=== PATIENT | male | born 1965 | race Caucasian/White ===

== ENCOUNTER 2018-12-01 13:20 | Emergency (ER) | payer SELFPAY ==
[2018-12-01] MEDS ORDERED: NORMAL SALINE 1000 ML 1,000 ML IV ONE (13:45)
[2018-12-01] MEDS ORDERED: ASPIRIN 325 MG TABLET PO ONE (13:45)
--- NOTE | 2018-12-01 13:47 | ER Document Report ---
ED Medical Screen (RME) - General Chief Complaint: Chest Pain Stated Complaint: DIFFICULTY SWALLOWING/COUGH/CHEST PRESSURE Time Seen by Provider: 12/01/18 13:44 Mode of Arrival: Wheelchair Information source: Patient, Relative TRAVEL OUTSIDE OF THE [place] IN LAST 30 DAYS: No - HPI Patient complains to provider of: CP; cough; anorexia Onset: Other - Pt seen in UC earlier today for c/o cough, CP, decreased po intake for the past few days. Has not taken ASA today - Related Data Allergies/Adverse Reactions: No Known Allergies Allergy (Verified 12/01/18 13:21) Past Medical History - Social History Chew tobacco use (# tins/day): No Frequency of alcohol use: None Drug Abuse: None Renal/ Medical History: Denies: Hx Peritoneal Dialysis Physical Exam - Vital signs Vitals: Temp Pulse Resp BP Pulse Ox 98.2 F 107 H 14 142/71 H 94 12/01/18 13:36 12/01/18 13:36 12/01/18 13:36 12/01/18 13:36 12/01/18 13:36 Course - Vital Signs Vital signs: Temp Pulse Resp BP Pulse Ox 98.2 F 107 H 14 142/71 H 94 12/01/18 13:36 12/01/18 13:36 12/01/18 13:36 12/01/18 13:36 12/01/18 13:36
[2018-12-01 14:21] LABS: ABSOLUTE LYMPHOCYTES (AUTO) 0.9 10^3/uL (0.5-4.7); ABSOLUTE MONOCYTES (AUTO) 0.7 10^3/uL (0.1-1.4); ABSOLUTE NEUT (AUTO) 5.4 10^3/uL (1.7-8.2); BASOPHILS % (AUTO) 0.3 % (0-2); EOSINOPHILS % (AUTO) 0.1 % (0-6); HEMATOCRIT 46.3 % (37.9-51.0); HEMOGLOBIN 16.2 g/dL (13.5-17.0); LYMPHOCYTES % (AUTO) 12.8 % (13-45); MEAN CORPUSCULAR HEMOGLOBIN 33.6 pg (27.0-33.4); MEAN CORPUSCULAR VOLUME 96 fl (80-97); PLATELET COUNT 138 10^3/uL (150-450); RED BLOOD COUNT 4.83 10^6/uL (4.35-5.55); RED CELL DISTRIBUTION WIDTH 12.7 % (11.5-14.0); SEGMENTED NEUTROPHILS % (AUTO) 76.8 % (42-78); TOTAL CELLS COUNTED % (AUTO) 100 %
[2018-12-01 14:32] LABS: ALANINE AMINOTRANSFERASE 24 U/L (21-72); ALBUMIN 4.2 g/dL (3.5-5.0); ALKALINE PHOSPHATASE 137 U/L (38-126); ANION GAP 10 (5-19); ASPARTATE AMINO TRANSFERASE 34 U/L (17-59); BILIRUBIN,DIRECT 0.2 mg/dL (0.0-0.4); BILIRUBIN,TOTAL 0.4 mg/dL (0.2-1.3); BLOOD UREA NITROGEN 16 mg/dL (7-20); CALCIUM 9.3 mg/dL (8.4-10.2); CARBON DIOXIDE 31 mmol/L (22-30); CHLORIDE 96 mmol/L (98-107); CREATINE KINASE 118 U/L (55-170); GLUCOSE 115 mg/dL (75-110); POTASSIUM 4.5 mmol/L (3.6-5.0); SODIUM 137.3 mmol/L (137-145); TOTAL PROTEIN 7.3 g/dL (6.3-8.2)
--- NOTE | 2018-12-01 14:37 | RADIOLOGY REPORT (SQ) ---
EXAM DESCRIPTION: CHEST 2 VIEWS COMPLETED DATE/TIME: 12/01/2018 2:11 pm REASON FOR STUDY: cough COMPARISON: None. NUMBER OF VIEWS: Two view. TECHNIQUE: Frontal and lateral radiographic views of the chest acquired. LIMITATIONS: None. FINDINGS: LUNGS AND PLEURA: No opacities, masses or pneumothorax. No pleural effusion. Attenuated bl ood vessels and flattened jose-diaphragms. MEDIASTINUM AND HILAR STRUCTURES: No masses. No contour abnormalities. HEART AND VASCULAR STRUCTURES: Heart normal in size and contour. No evidence for failure. BONES: No acute findings. HARDWARE: None in the chest. OTHER: No other significant finding. IMPRESSION: COPD. NO ACUTE RADIOGRAPHIC FINDING IN THE CHEST. TECHNICAL DOCUMENTATION: JOB ID: [id number] [employer]- All Rights Reserved Reading location - IP/workstation name: [email or web address]
[2018-12-01 14:43] LABS: CREATINE KINASE MB 0.78 ng/mL (<4.55)
[2018-12-01 14:44] LABS: TROPONIN I < 0.012 ng/mL
[2018-12-01] MEDS ORDERED: FAMOTIDINE INJ/PF 20 MG/2 ML SDV IV ONE (15:00)
[2018-12-01] MEDS ORDERED: ONDANSETRON HCL INJ/PF 4 MG/2 ML SDV IV ONE (15:00)
[2018-12-01] MEDS ORDERED: KETOROLAC TROMETHAMINE INJ/PF 30 MG/1 ML SDV IV ONE (15:00)
[2018-12-01] MEDS ORDERED: MAG HYDROX/AL HYDROX/SIMETH SUSP 30 ML UDCUP PO ONE (15:03)
[2018-12-01] MEDS ORDERED: METOCLOPRAMIDE HCL ORAL SOLN 10 MG/10 ML UDCUP PO ONE (15:03)
[2018-12-01] MEDS ORDERED: LIDOCAINE 2% VISCOUS SOLN 20 ML UDCUP PO ONE (15:03)
--- NOTE | 2018-12-01 15:06 | ER Document Report ---
ED General - General Chief Complaint: Chest Pain Stated Complaint: DIFFICULTY SWALLOWING/COUGH/CHEST PRESSURE Time Seen by Provider: 12/01/18 13:44 Mode of Arrival: Wheelchair TRAVEL OUTSIDE OF THE [place] IN LAST 30 DAYS: No - HPI Notes: Patient is a 53-year-old male that presents to the emergency department for chief complaint of dysphasia and chest pain. Patient reports for the last few weeks to months he has had a difficult time swallowing. He states when he swallows he feels like food is getting stuck in the lower part of his chest. It is a sharp burning sensation. He states over the last few days this chest discomfort has gotten worse. He states that it is exacerbated by eating. He denies relieving factors. He describes it now as an epigastric and substernal chest burning sensation without radiation. Patient has never seen a GI doctor or has ever been diagnosed with reflux. He does report over the last few days he has been having intermittent fevers cough and congestion which she relates to having influenza. He denies hitting a flu shot this year. He does report some nausea and vomiting which has made this chest discomfort worse. He denies any dyspnea, palpitations, lightheadedness, and syncope. Past Medical History: Negative Past Surgical History: Negative Social History: Quit tobacco 5 days ago. Denies alcohol or drug use. Family History: Reviewed and noncontributory for presenting illness Allergies: Reviewed, see documented allergy list. REVIEW OF SYSTEMS: CONSTITUTIONAL : No fever No chills No diaphoresis No recent illness EENT: No vision changes No congestion No sore throat CARDIOVASCULAR: chest pain No palpitations RESPIRATORY: No shortness of breath No cough No difficulty breathing GASTROINTESTINAL: abdominal pain nausea vomiting No diarrhea GENITOURINARY: No dysuria No hematuria No difficulty urinating MUSCULOSKELETAL: No back pain No leg pain No arm pain SKIN: No rashes No lesions LYMPHATIC: No swollen, enlarged glands. NEUROLOGICAL: No lightheadedness No headache No weakness No paresthesias PSYCHIATRIC: No anxiety No depression PHYSICAL EXAMINATION: Vital signs reviewed, nursing noted reviewed. GENERAL: Well-appearing, well-nourished and in no acute distress. HEAD: Atraumatic, normocephalic. EYES: Eyes appear normal, extraocular movements intact, sclera anicteric, conjunctiva are normal. ENT: nares patent, oropharynx clear without exudates. Moist mucous membranes. NECK: Normal range of motion, supple without lymphadenopathy LUNGS: Breath sounds clear to auscultation bilaterally and equal. No wheezes rales or rhonchi. HEART: Regular rate and rhythm without murmurs ABDOMEN: Soft, nontender, normoactive bowel sounds. No rebound, guarding, or rigidity. No masses appreciated. EXTREMITIES: Nontender, good range of motion, no pitting or edema. NEUROLOGICAL: No focal neurological deficits. Moves all extremities spontaneously Motor and sensory grossly intact on exam. PSYCH: Normal mood, normal affect. SKIN: Warm, Dry, normal turgor, no rashes or lesions noted on exposed skin - Related Data Allergies/Adverse Reactions: No Known Allergies Allergy (Verified 12/01/18 13:21) Past Medical History - General Information source: Patient, Relative - Social History Smoking Status: Former Smoker Chew tobacco use (# tins/day): No Frequency of alcohol use: None Drug Abuse: None Family History: Reviewed & Not Pertinent Patient has suicidal ideation: No Patient has homicidal ideation: No Renal/ Medical History: Denies: Hx Peritoneal Dialysis Physical Exam - Vital signs Vitals: Temp Pulse Resp BP Pulse Ox 98.2 F 107 H 14 142/71 H 94 12/01/18 13:36 12/01/18 13:36 12/01/18 13:36 12/01/18 13:36 12/01/18 13:36 Course - Re-evaluation Re-evalutation: 12/01/18 15:06 Vitals reviewed. Nursing notes reviewed. Patient's EKG shows no acute ischemic changes. He is having epigastric discomfort and dysphasia consistent with reflux and possible esophageal strictures. He is able to tolerate oral intake and is handling his secretions. There is no acute esophageal obstruction. His lab work is unremarkable. Patient has no acute findings on chest x-ray. His troponin was also negative. I do not feel his symptoms are related to ACS since they have been ongoing for at least a few weeks and are related to eating. Patient will be started on omeprazole and was counseled extensively on dietary changes as well as encouraged to not return to smoking tobacco when he is feeling better. He is feeling significant improvement after receiving fluids in triage. He is otherwise well-appearing and stable for discharge. He does not currently have insurance but was counseled on the importance of trying to obtain it in order to see a GI physician and get EGD. He will follow with the [facility] for further reevaluation in the next few days. He will return for new or worsening symptoms. Laboratory 12/01/18 12/01/18 12/01/18 13:58 13:58 13:58 WBC 7.0 RBC 4.83 Hgb 16.2 Hct 46.3 MCV 96 MCH 33.6 H MCHC 35.0 RDW 12.7 Plt Count 138 L Seg Neutrophils % 76.8 Lymphocytes % 12.8 L Monocytes % 10.0 Eosinophils % 0.1 Basophils % 0.3 Absolute Neutrophils 5.4 Absolute Lymphocytes 0.9 Absolute Monocytes 0.7 Absolute Eosinophils 0.0 Absolute Basophils 0.0 Sodium 137.3 Potassium 4.5 Chloride 96 L Carbon Dioxide 31 H Anion Gap 10 BUN 16 Creatinine 0.73 Est GFR ( Amer) > 60 Est GFR (Non-Af Amer) > 60 Glucose 115 H Calcium 9.3 Total Bilirubin 0.4 Direct Bilirubin 0.2 Neonat Total Bilirubin Not Reportable Neonat Direct Bilirubin Not Reportable Neonat Indirect Bili Not Reportable AST 34 ALT 24 Alkaline Phosphatase 137 H Creatine Kinase 118 CK-MB (CK-2) 0.78 Troponin I < 0.012 Total Protein 7.3 Albumin 4.2 Chest X-Ray 12/01/18 13:45 IMPRESSION: COPD. NO ACUTE RADIOGRAPHIC FINDING IN THE CHEST. - Vital Signs Vital signs: Temp Pulse Resp BP Pulse Ox 98.2 F 107 H 23 H 146/86 H 96 12/01/18 13:36 12/01/18 13:36 12/01/18 14:37 12/01/18 14:37 12/01/18 14:37 - Laboratory Result Diagrams: 12/01/18 13:58 12/01/18 13:58 Laboratory results interpreted by me: 12/01/18 12/01/18 13:58 13:58 MCH 33.6 H Plt Count 138 L Lymphocytes % 12.8 L Chloride 96 L Carbon Dioxide 31 H Glucose 115 H Alkaline Phosphatase 137 H - EKG Interpretation by Me Additional EKG results interpreted by me: 12/01/18 15:08 Interpreted by myself 1329: Normal sinus rhythm, rate 97, normal axis, no STEMI Discharge - Discharge Clinical Impression: Chest pain Qualifiers: Chest pain type: unspecified Qualified Code(s): R07.9 - Chest pain, unspecified GERD (gastroesophageal reflux disease) Qualifiers: Esophagitis presence: esophagitis presence not specified Qualified Code(s): K21.9 - Gastro-esophageal reflux disease without esophagitis Condition: Stable Disposition: HOME, SELF-CARE Instructions: Reflux Disease (GERD) ([facility]), Chest Pain of Unclear Cause ([facility]) Additional Instructions: Please return to the emergency department if you have any worsening, or concern of your symptoms. Please return to the emergency department if you develop chest pain, difficulty breathing, severe abdominal pain, or ongoing vomiting. Please follow-up with your primary care physician in 2-3 days and any other recommended physicians. If prescribed, take all medications as directed. If you have any questions or concerns do not hesitate to return the emergency department for evaluation. Prescriptions: Omeprazole 40 mg PO DAILY #30 capsule. Ondansetron HCl [Zofran 4 mg Tablet] 1 tab PO Q4H PRN #10 tablet PRN Reason: vomiting Referrals: MORRO BENITO MD [ACTIVE STAFF] - Follow up as needed [facility] [Provider Group] - Follow up in 3-5 days
[2018-12-01 15:32] VITALS: BP 168/74
--- NOTE | 2018-12-01 16:41 | EKG REPORT ---
SEVERITY:- OTHERWISE NORMAL ECG - SINUS RHYTHM MINIMAL ST DEPRESSION, INFERIOR LEADS : Confirmed by: Brett Cordova MD 01-Dec-2018 16:40:24
== END 2018-12-01 15:37 | disposition home or self-care (01) ==
LOC: ER 13:20
DX: K21.9 Gastro-esophageal reflux disease without esophagitis (principal); R07.89 Other chest pain; R10.13 Epigastric pain; R13.10 Dysphagia, unspecified; J44.9 Chronic obstructive pulmonary disease, unspecified; R05 Cough; R50.9 Fever, unspecified; R11.2 Nausea with vomiting, unspecified; Z87.891 Personal history of nicotine dependence
CPT/HCPCS: 93005; 99284; 96361; 96374; 96375; 36415; 82553; 82550; 85025; 80053; 84484; 71046; 93010; J3490; J1885; J2405; J7030; S0028

== ENCOUNTER 2018-12-04 16:27 | Inpatient (IN) | payer SELFPAY ==
--- NOTE | 2018-12-04 17:51 | ER Document Report ---
ED Medical Screen (RME) - General Chief Complaint: Fever Stated Complaint: SHORTNESS OF BREATH, FEVER, WEAKNESS Time Seen by Provider: 12/04/18 17:49 Mode of Arrival: Wheelchair Information source: Patient Notes: Patient is a 53-year-old male who presents to the emergency department with chief complaint of cough, congestion, shortness of breath, wheezing, all over body aches, fever, nausea, vomiting and weakness. He states that he was seen here in the emergency department on Sunday and was diagnosed with a viral illness. Patient reports his symptoms have gotten significantly worse. Patient tachycardic with a heart rate of 120. Exam: Expiratory wheezes noted bilaterally. I have greeted and performed a rapid initial assessment of this patient. A comprehensive ED assessment and evaluation of the patient, analysis of test results and completion of the medical decision making process will be conducted by additional ED providers. Dictation of this chart was performed using voice recognition software; therefore, there may be some unintended grammatical errors. TRAVEL OUTSIDE OF THE [place] IN LAST 30 DAYS: No - Related Data Allergies/Adverse Reactions: No Known Allergies Allergy (Verified 12/04/18 16:29) Past Medical History - Social History Frequency of alcohol use: None Drug Abuse: None Renal/ Medical History: Denies: Hx Peritoneal Dialysis GI Medical History: Reports: Hx Gastroesophageal Reflux Disease Physical Exam - Vital signs Vitals: Temp Pulse Resp BP Pulse Ox 98.2 F 118 H 22 H 153/77 H 93 12/04/18 16:34 12/04/18 16:34 12/04/18 16:34 12/04/18 16:34 12/04/18 16:34 Course - Vital Signs Vital signs: Temp Pulse Resp BP Pulse Ox 98.2 F 118 H 22 H 153/77 H 93 12/04/18 16:34 12/04/18 16:34 12/04/18 17:40 12/04/18 16:34 12/04/18 16:34
[2018-12-04] MEDS ORDERED: IPRATROPIUM/ALBUTEROL 0.5-2.5 MG/3 ML AMPUL NEB ONE (18:01)
[2018-12-04] MEDS ORDERED: ONDANSETRON HCL INJ/PF 4 MG/2 ML SDV IV ONE (18:01)
[2018-12-04] MEDS ORDERED: NORMAL SALINE 1000 ML 1,000 ML IV ONE (18:01)
--- NOTE | 2018-12-04 18:21 | RADIOLOGY REPORT (SQ) ---
EXAM DESCRIPTION: CHEST 2 VIEWS COMPLETED DATE/TIME: 12/04/2018 6:13 pm REASON FOR STUDY: cough, fever COMPARISON: 12/01/2018 EXAM PARAMETERS: NUMBER OF VIEWS: two views TECHNIQUE: Digital Frontal and Lateral radiographic views of the chest acquired. RADIATION DOSE: NA LIMITATIONS: none FINDINGS: LUNGS AND PLEURA: The lungs are hyperexpanded. There is no infiltrate, effusion, or mass. Mild chronic interstitial changes. MEDIASTINUM AND HILAR STRUCTURES: No masses or contour abnormalities. HEART AND VASCULAR STRUCTURES: Heart normal size. No evidence for failure. BONES: No acute findings. HARDWARE: None in the chest. OTHER: No other significant finding. IMPRESSION: Chronic lung changes with no acute cardiopulmonary findings. TECHNICAL DOCUMENTATION: JOB ID: [id number] [employer]- All Rights Reserved Reading location - IP/workstation name: [email or web address]
[2018-12-04 19:55] LABS: ABSOLUTE LYMPHOCYTES (AUTO) 1.2 10^3/uL (0.5-4.7); ABSOLUTE MONOCYTES (AUTO) 1.4 10^3/uL (0.1-1.4); ABSOLUTE NEUT (AUTO) 11.1 10^3/uL (1.7-8.2); BASOPHILS % (AUTO) 0.3 % (0-2); EOSINOPHILS % (AUTO) 0.2 % (0-6); HEMATOCRIT 49.4 % (37.9-51.0); HEMOGLOBIN 17.2 g/dL (13.5-17.0); LYMPHOCYTES % (AUTO) 8.6 % (13-45); MEAN CORPUSCULAR HEMOGLOBIN 33.2 pg (27.0-33.4); MEAN CORPUSCULAR HGB CONC 34.8 g/dL (32.0-36.0); MEAN CORPUSCULAR VOLUME 96 fl (80-97); MONOCYTES % (AUTO) 10.4 % (3-13); PLATELET COUNT 258 10^3/uL (150-450); RED BLOOD COUNT 5.17 10^6/uL (4.35-5.55); RED CELL DISTRIBUTION WIDTH 12.5 % (11.5-14.0); SEGMENTED NEUTROPHILS % (AUTO) 80.5 % (42-78); TOTAL CELLS COUNTED % (AUTO) 100 %; WHITE BLOOD COUNT 13.8 10^3/uL (4.0-10.5)
[2018-12-04 20:10] LABS: ALANINE AMINOTRANSFERASE 39 U/L (21-72); ALBUMIN 4.4 g/dL (3.5-5.0); ALKALINE PHOSPHATASE 161 U/L (38-126); ANION GAP 13 (5-19); ASPARTATE AMINO TRANSFERASE 45 U/L (17-59); BILIRUBIN,DIRECT 0.5 mg/dL (0.0-0.4); BILIRUBIN,TOTAL 0.8 mg/dL (0.2-1.3); BLOOD UREA NITROGEN 9 mg/dL (7-20); CALCIUM 9.6 mg/dL (8.4-10.2); CARBON DIOXIDE 29 mmol/L (22-30); CHLORIDE 98 mmol/L (98-107); GLUCOSE 130 mg/dL (75-110); POTASSIUM 4.5 mmol/L (3.6-5.0); SODIUM 139.8 mmol/L (137-145); TOTAL PROTEIN 7.7 g/dL (6.3-8.2)
[2018-12-04 20:14] LABS: A TYPE INFLUENZA AG NEGATIVE (NEGATIVE); B INFLUENZA AG NEGATIVE (NEGATIVE)
[2018-12-04] MEDS ORDERED: NORMAL SALINE 500 ML IV ONE (22:23)
[2018-12-04] MEDS ORDERED: LORAZEPAM INJ 2 MG/1 ML VIAL IV ONE (22:23)
--- NOTE | 2018-12-04 23:34 | ER Document Report ---
ED General - General Chief Complaint: Fever Stated Complaint: SHORTNESS OF BREATH, FEVER, WEAKNESS Time Seen by Provider: 12/04/18 17:49 Mode of Arrival: Wheelchair Notes: Patient is a 3-year-old male who presents with complaint of difficulty breathing for over a week. He was seen few days ago in the ER. Was diagnosed with bronchitis. Says his breathing is gotten worse. He also has 27 difficulty breathing is also having difficulty swallowing at the same time. He states that he able to swallow liquids but is having a hard time swallowing any type of food. He is unsure if this is related to difficulty breathing. He says he does not have a history of anxiety but he does feel anxious with what is going on and so he is unsure if this is related to anxiety either. He has had fevers at home. Denies chest pain. Says cough is nonproductive. He did quit smoking 1 week ago the symptoms he was having. Patient does not follow with physician and does not take any medications. TRAVEL OUTSIDE OF THE [place] IN LAST 30 DAYS: No - Related Data Allergies/Adverse Reactions: No Known Allergies Allergy (Verified 12/04/18 16:29) Past Medical History - General Information source: Patient - Social History Smoking Status: Former Smoker Frequency of alcohol use: None Drug Abuse: None Family History: Reviewed & Not Pertinent Patient has suicidal ideation: No Patient has homicidal ideation: No Renal/ Medical History: Denies: Hx Peritoneal Dialysis GI Medical History: Reports: Hx Gastroesophageal Reflux Disease Review of Systems - Review of Systems Notes: My Normal Review Basic REVIEW OF SYSTEMS: CONSTITUTIONAL : Fever EENT: Denies eye, ear, throat, or mouth pain or symptoms. Denies nasal or sinus congestion. CARDIOVASCULAR: Denies chest pain. RESPIRATORY: Difficulty breathing GASTROINTESTINAL: Denies abdominal pain. Vomiting after eating solid foods. GENITOURINARY: Denies difficulty urinating, painful urination, burning, frequency, or blood in urine. MUSCULOSKELETAL: Denies neck or back pain or joint pain or swelling. SKIN: Denies rash or skin lesions. HEMATOLOGIC : Denies easy bruising or bleeding. LYMPHATIC: Denies swollen, enlarged glands. NEUROLOGICAL: Denies altered mental status or loss of consciousness. Denies headache. Denies weakness or paralysis or loss of use of either side. Denies problems with gait or speech. Denies sensory or motor loss. PSYCHIATRIC: Possible anxiety ALL OTHER SYSTEMS REVIEWED AND NEGATIVE. Physical Exam - Vital signs Vitals: Temp Pulse Resp BP Pulse Ox 98.2 F 118 H 22 H 153/77 H 93 12/04/18 16:34 12/04/18 16:34 12/04/18 16:34 12/04/18 16:34 12/04/18 16:34 - Notes Notes: General Appearance: Well nourished, alert, cooperative, mild to moderate acute distress, no obvious discomfort. Vitals: reviewed, See vital signs table. Head: no swelling or tenderness to the head Eyes: PERRL, EOMI, Conjuctiva clear Mouth: No decreasd moisture Throat: No tonsillar inflammation, No airway obstruction, No lymphadenopathy Neck: Supple, no neck tenderness, No thyromegaly Lungs: Patient has some tachypnea on exam. He has some increased work of breathing. His lung santoro are currently clear however the patient just finished a DuoNeb treatment that was ordered in triage. Heart: Tachycardic rate, Regular rythm, No murmur, no rub Abdomen: Normal BS, soft, No rigidity, No abdominal tenderness, No guarding, no rebound, no abdominal masses, no organomegaly Extremities: strength 5/5 in all extremities, good pulses in all extremities, no swelling or tenderness in the extremities, no edema. Skin: warm, dry, appropriate color, no rash Neuro: speech clear, oriented x 3, normal affect, responds appropriately to questions. Course - Re-evaluation Re-evalutation: 12/04/18 23:33 After the Ativan was given the patient says that he does not feel anxious. He however still looks somewhat short of breath and still is tachycardic on mo nitor. He is also hypertensive which she does not have a previous history of. We will obtain a CTA of the chest. Have also ordered an EKG and troponin which are pending. 12/05/18 00:54 CT scan shows bilateral pneumonia. There is no evidence of dissection or PE. We will start him on Levaquin. I re-listened to his lungs now he started to have some wheezing and tightness again. I will give another DuoNeb treatment. I placed a little bit of oxygen as his oxygen and would occasionally dip down to around 89-90% on room air. I feel patient probably requires admission based on his recurrent tachycardia, continued difficulty breathing, and oxygen requirement. I will consult hospitalist for consideration for admission. His blood gas does show that he is acidotic. Is not clear exactly what this acidosis is his CO2 is normal. His bicarb is low on the blood gas but its normal and a chemistry panel which is odd; however these were drawn several hours apart so the patient may be developing a metabolic acidosis. 12/05/18 01:00 I did speak with Dr. Camacho, hospitalist, who agrees to evaluate the patient for admission. Patient has been started on antibiotics. Blood cultures have been drawn. He has been placed on 2 L of oxygen because of his intermittent oxygen desaturations and his difficulty breathing. Dictation of this chart was performed using voice recognition software; therefore, there may be some unintended grammatical errors. - Vital Signs Vital signs: Temp Pulse Resp BP Pulse Ox 98.2 F 123 H 36 H 172/87 H 95 12/05/18 02:10 12/05/18 02:33 12/05/18 02:47 12/05/18 02:10 12/05/18 02:47 - Laboratory Result Diagrams: 12/05/18 03:13 12/05/18 03:13 Laboratory results interpreted by me: 12/04/18 12/04/18 12/05/18 19:26 19:26 00:05 WBC 13.8 H Hgb 17.2 H Seg Neutrophils % 80.5 H Lymphocytes % 8.6 L Absolute Neutrophils 11.1 H VBG pH 7.26 L VBG pCO2 30.4 L VBG HCO3 13.2 L Glucose 130 H Direct Bilirubin 0.5 H Alkaline Phosphatase 161 H - EKG Interpretation by Me Additional EKG results interpreted by me: 12/04/18 23:54 EKG is reviewed and interpreted by me. EKG shows sinus tachycardia with a rate of [address] segment elevation or depression. Patient does have occasional PVCs. DE interval, QRS duration, QT intervals are within normal range. Old EKG for comparison is from May 31, 2019. Discharge - Discharge Clinical Impression: Hypoxemia Dyspnea Qualifiers: Dyspnea type: unspecified Qualified Code(s): R06.00 - Dyspnea, unspecified Pneumonia Qualifiers: Pneumonia type: due to unspecified organism Laterality: bilateral Lung location: unspecified part of lung Qualified Code(s): J18.9 - Pneumonia, unspecified organism Condition: Stable Disposition: ADMITTED OBSERVATION Admitting Provider: Hospitalist Unit Admitted: Telemetry
[2018-12-05 00:18] LABS: VENOUS BLOOD BASE EXCESS -12.7 mmol/L; VENOUS BLOOD HCO3 13.2 mmol/L (20-32); VENOUS BLOOD PCO2 30.4 mmHg (35-63); VENOUS BLOOD PH 7.26 (7.30-7.42)
--- NOTE | 2018-12-05 00:32 | RADIOLOGY REPORT (SQ) ---
CLINICAL HISTORY: dyspnea, tachycardia COMPARISON: None. TECHNIQUE: CT CHEST ANGIOGRAPHY WITHOUT THEN WITH IV CONTRAST on 12/04/2018 11:26 PM ROD TAPE OPERATOR. MIPS reconstructions were generated. This exam was performed according to our departmental dose-optimization program, which includes automated exposure control, adjustment of the mA and/or kV according to patient size and/or use of iterative reconstruction technique. MIP images were generated. FINDINGS: Thoracic aorta is normal in course and caliber without aneurysm or dissection. Pulmonary arteries are adequately opacified without acute or chronic filling defects. The heart is normal in size. There is no pericardial effusion. Subcarinal lymph node is enlarged measuring 1.9 cm. There is biapical pleural parenchymal scarring. Central airways are patent. There is diffuse centrilobular emphysema. There is bibasilar airspace disease. There are no acute abnormalities within the limited images of the upper abdomen. There are no acute osseous findings. No suspicious bony lesions. IMPRESSION: Bibasilar pneumonia on background of emphysema. No aortic dissection or aneurysm. No pulmonary embolus.
[2018-12-05] MEDS ORDERED: LEVOFLOXACIN 750 MG/D5W RTU 750 MG/150 ML RTUPB IV ONE (00:47)
[2018-12-05] MEDS ORDERED: IPRATROPIUM/ALBUTEROL 0.5-2.5 MG/3 ML AMPUL NEB ONE (00:53)
[2018-12-05] MEDS ORDERED: CHLORPHENIRAMINE MALEATE 4 MG TABLET PO ONE (01:02)
[2018-12-05] MEDS ORDERED: ACETAMINOPHEN 325 MG TABLET PO PRN (01:02)
[2018-12-05] MEDS ORDERED: CHLORPHENIRAMINE MALEATE 4 MG TABLET ONE (01:08)
[2018-12-05] MEDS ORDERED: FLUTICASONE NASAL SPRAY 50 MCG/SPRY 120 SPRAY/16 GM ONE (01:08)
[2018-12-05] MEDS ORDERED: FLUTICASONE NASAL SPRAY 50 MCG/SPRY 120 SPRAY/16 GM NASL ONE (01:30)
[2018-12-05] MEDS ORDERED: CEFEPIME 2 GM/D5W RTU 2 GM/50 ML RTUPB IV ONE (01:30)
[2018-12-05] MEDS: HYDRALAZINE HCL INJ/PF 20 MG/1 ML SDV IV PRN ×2 (01:54→10:39)
[2018-12-05] MEDS: IPRATROPIUM/ALBUTEROL 0.5-2.5 MG/3 ML AMPUL NEB PRN (02:32)
[2018-12-05] MEDS ORDERED: TRAZODONE HCL 50 MG TABLET PO ONE (02:50)
[2018-12-05 03:02] LABS: ARTERIAL BLOOD BASE EXCESS 0.6 mmol/L; ARTERIAL BLOOD H2CO3 1.07 mmol/L (1.05-1.35); ARTERIAL BLOOD HCO3 24.1 mmol/L (20-24); ARTERIAL BLOOD O2 SATURATION 94.8 % (94-98); ARTERIAL BLOOD PCO2 35.5 mmHg (35-45); ARTERIAL BLOOD PH 7.45 (7.35-7.45); ARTERIAL BLOOD PO2 69.8 mmHg (80-100); ARTERIAL BLOOD TOTAL CO2 25.2 mmol/L (23-27)
[2018-12-05 03:12] LABS: ARTERIAL BLOOD FIO2 2L
[2018-12-05] MEDS: NORMAL SALINE 1000 ML 1,000 ML IV PRN ×2 (03:20→08:31)
[2018-12-05 03:31] LABS: ABSOLUTE BASOPHILS # (AUTO) 0.1 10^3/uL (0.0-0.2); ABSOLUTE LYMPHOCYTES (AUTO) 1.3 10^3/uL (0.5-4.7); ABSOLUTE MONOCYTES (AUTO) 1.3 10^3/uL (0.1-1.4); ABSOLUTE NEUT (AUTO) 9.7 10^3/uL (1.7-8.2); BASOPHILS % (AUTO) 0.6 % (0-2); EOSINOPHILS % (AUTO) 0.1 % (0-6); HEMATOCRIT 41.2 % (37.9-51.0); LYMPHOCYTES % (AUTO) 10.9 % (13-45); MEAN CORPUSCULAR HEMOGLOBIN 33.4 pg (27.0-33.4); MEAN CORPUSCULAR HGB CONC 35.2 g/dL (32.0-36.0); MEAN CORPUSCULAR VOLUME 95 fl (80-97); MONOCYTES % (AUTO) 10.5 % (3-13); PLATELET COUNT 223 10^3/uL (150-450); RED BLOOD COUNT 4.35 10^6/uL (4.35-5.55); SEGMENTED NEUTROPHILS % (AUTO) 77.9 % (42-78); TOTAL CELLS COUNTED % (AUTO) 100 %; WHITE BLOOD COUNT 12.4 10^3/uL (4.0-10.5)
[2018-12-05 03:32] LABS: HEMOGLOBIN 14.5 g/dL (13.5-17.0)
[2018-12-05 03:39] LABS: ANION GAP 9 (5-19); BLOOD UREA NITROGEN 8 mg/dL (7-20); CALCIUM 8.3 mg/dL (8.4-10.2); CARBON DIOXIDE 24 mmol/L (22-30); CHLORIDE 105 mmol/L (98-107); GLUCOSE 133 mg/dL (75-110); POTASSIUM 3.7 mmol/L (3.6-5.0); SODIUM 137.8 mmol/L (137-145)
[2018-12-05] MEDS: HEPARIN SOD (PORCINE) 5,000 UNIT/ML 1 ML SYRINGE SUBCUT SCH ×3 (05:12→21:05)
--- NOTE | 2018-12-05 05:50 | PDOC H&P ---
History of Present Illness Admission Date/PCP: 12/05/18 01:08 Patient complains of: Shortness of breath and cough History of Present Illness: TIFFANIE MACIEL is a 53 year old male with a past medical history of tobacco dependence who presents with 5 days of uncontrolled acid reflux, sore throat, fever chills, shortness of breath and nonproductive cough. Patient denies previous episode, infectious contacts or influenza immunization. In the emergency room he is found to have tachypnea, leukocytosis and bilateral lower lobe pneumonia by CT. He started on empiric antibiotics and referred to the hospitalist for admission. Past Medical History Pulmonary Medical History: Reports: Bronchitis GI Medical History: Reports: Gastroesophageal Reflux Disease Psychiatric Medical History: Reports: Tobacco Dependency Past Surgical History Past Surgical History: Reports: None Social History Smoking Status: Current Every Day Smoker Number of Years Smokin Frequency of Alcohol Use: None Hx Recreational Drug Use: No Drugs: None Hx Prescription Drug Abuse: No - Advance Directive Resuscitation Status: Full Code Family History Family History: COPD Parental Family History Reviewed: Yes Children Family History Reviewed: Yes Sibling(s) Family History Reviewed.: Yes Medication/Allergy Home Medications: No Home Medications 12/04/18 Allergies/Adverse Reactions: No Known Allergies Allergy (Verified 12/04/18 16:29) Review of Systems Constitutional: ABSENT: chills, fever(s), headache(s), weight gain, weight loss Eyes: ABSENT: visual disturbances Ears: ABSENT: hearing changes Cardiovascular: ABSENT: chest pain, dyspnea on exertion, edema, orthropnea, palpitations Respiratory: ABSENT: cough, hemoptysis Gastrointestinal: ABSENT: abdominal pain, constipation, diarrhea, hematemesis, hematochezia, nausea, vomiting Genitourinary: ABSENT: dysuria, hematuria Musculoskeletal: ABSENT: joint swelling Integumentary: ABSENT: rash, wounds Neurological: ABSENT: abnormal gait, abnormal speech, confusion, dizziness, focal weakness, syncope Psychiatric: ABSENT: anxiety, depression, homidical ideation, suicidal ideation Endocrine: ABSENT: cold intolerance, heat intolerance, polydipsia, polyuria Hematologic/Lymphatic: ABSENT: easy bleeding, easy bruising Physical Exam Vital Signs: Temp Pulse Resp BP Pulse Ox 98.2 F 123 H 36 H 172/87 H 95 12/05/18 02:10 12/05/18 02:33 12/05/18 02:47 12/05/18 02:10 12/05/18 02:47 Intake & Output 12/03/18 12/04/18 12/05/18 11:59 11:59 11:59 Intake Total 1700 Balance 1700 Weight 54 kg General appearance: PRESENT: cooperative, severe distress, thin Head exam: PRESENT: atraumatic, normocephalic Eye exam: PRESENT: conjunctiva pink, EOMI, PERRLA. ABSENT: scleral icterus Ear exam: PRESENT: normal external ear exam Mouth exam: PRESENT: moist, tongue midline Neck exam: ABSENT: carotid bruit, JVD, lymphadenopathy, thyromegaly Respiratory exam: PRESENT: accessory muscle use, crackles, decreased breath sounds, prolonged expiratory phas, rales, tachypnea Cardiovascular exam: PRESENT: RRR. ABSENT: diastolic murmur, rubs, systolic murmur Pulses: PRESENT: normal dorsalis pedis pul Vascular exam: PRESENT: normal capillary refill GI/Abdominal exam: PRESENT: normal bowel sounds, soft. ABSENT: distended, guarding, mass, organolmegaly, rebound, tenderness Rectal exam: PRESENT: deferred Extremities exam: PRESENT: full ROM. ABSENT: calf tenderness, clubbing, pedal edema Neurological exam: PRESENT: alert, awake, oriented to person, oriented to place, oriented to time, oriented to situation, CN II-XII grossly intact. ABSENT: motor sensory deficit Psychiatric exam: PRESENT: anxious Skin exam: PRESENT: dry, intact, warm. ABSENT: cyanosis, rash Results Laboratory Results: 12/05/18 03:13 12/05/18 03:13 12/04/18 12/04/18 12/05/18 19:26 19:26 00:05 WBC 13.8 H RBC 5.17 Hgb 17.2 H Hct 49.4 MCV 96 MCH 33.2 MCHC 34.8 RDW 12.5 Plt Count 258 Seg Neutrophils % 80.5 H Lymphocytes % 8.6 L Monocytes % 10.4 Eosinophils % 0.2 Basophils % 0.3 Absolute Neutrophils 11.1 H Absolute Lymphocytes 1.2 Absolute Monocytes 1.4 Absolute Eosinophils 0.0 Absolute Basophils 0.0 Carbonic Acid HCO3/H2CO3 Ratio ABG pH ABG pCO2 ABG pO2 ABG HCO3 ABG O2 Saturation ABG Base Excess VBG pH 7.26 L VBG pCO2 30.4 L VBG HCO3 13.2 L VBG Base Excess -12.7 FiO2 Sodium 139.8 Potassium 4.5 Chloride 98 Carbon Dioxide 29 Anion Gap 13 BUN 9 Creatinine 0.61 Est GFR ( Amer) > 60 Est GFR (Non-Af Amer) > 60 Glucose 130 H Calcium 9.6 Total Bilirubin 0.8 AST 45 ALT 39 Alkaline Phosphatase 161 H Total Protein 7.7 Albumin 4.4 12/05/18 12/05/18 12/05/18 02:49 03:13 03:13 WBC 12.4 H RBC 4.35 Hgb 14.5 D Hct 41.2 MCV 95 MCH 33.4 MCHC 35.2 RDW 13.0 Plt Count 223 Seg Neutrophils % 77.9 Lymphocytes % 10.9 L Monocytes % 10.5 Eosinophils % 0.1 Basophils % 0.6 Absolute Neutrophils 9.7 H Absolute Lymphocytes 1.3 Absolute Monocytes 1.3 Absolute Eosinophils 0.0 Absolute Basophils 0.1 Carbonic Acid 1.07 HCO3/H2CO3 Ratio 22:1 ABG pH 7.45 ABG pCO2 35.5 ABG pO2 69.8 L ABG HCO3 24.1 H ABG O2 Saturation 94.8 ABG Base Excess 0.6 VBG pH VBG pCO2 VBG HCO3 VBG Base Excess FiO2 2L Sodium 137.8 Potassium 3.7 Chloride 105 Carbon Dioxide 24 Anion Gap 9 BUN 8 Creatinine 0.52 Est GFR ( Amer) > 60 Est GFR (Non-Af Amer) > 60 Glucose 133 H Calcium 8.3 L Total Bilirubin AST ALT Alkaline Phosphatase Total Protein Albumin 12/04/18 23:44 Troponin I 0.019 Impressions: Chest X-Ray 12/04/18 18:00 IMPRESSION: Chronic lung changes with no acute cardiopulmonary findings. Chest/Abdomen CTA 12/04/18 23:26 IMPRESSION: Bibasilar pneumonia on background of emphysema. No aortic dissection or aneurysm. No pulmonary embolus. Assessment & Plan - Diagnosis (1) Pneumonia Qualifiers: Pneumonia type: due to unspecified organism Laterality: bilateral Lung location: unspecified part of lung Qualified Code(s): J18.9 - Pneumonia, unspecified organism Is this a current diagnosis for this admission?: Yes Plan: Pneumonia care set deployed, empiric antibiotics, Flonase, chlorpheniramine, proton pump inhibitor. Follow-up CBC and blood culture (2) COPD exacerbation Is this a current diagnosis for this admission?: Yes Plan: Flutter valve, supplemental oxygen, albuterol and Atrovent ordered (3) Tobacco abuse Is this a current diagnosis for this admission?: Yes Plan: Tobacco Dependence patient received tobacco cessation counseling and offered nicotine replacement options (4) GERD (gastroesophageal reflux disease) Is this a current diagnosis for this admission?: Yes Plan: Proton pump inhibitor initiated - Time Time Spent: 50 to 70 Minutes - Inpatient Certification Medical Necessity: Need Close Monitoring Due to Risk of Patient Decompensation
[2018-12-05] MEDS: HYDROCODONE BIT/HOMATROPINE 5-1.5 MG TABLET PO PRN ×2 (05:59→21:04)
[2018-12-05] MEDS: LANSOPRAZOLE 30 MG TAB.RAP.DR PO SCH ×2 (06:00→18:03)
[2018-12-05 06:28] LABS: URINE AMPHETAMINES SCREEN NEGATIVE; URINE BARBITURATES SCREEN NEGATIVE; URINE BENZODIAZEPINES SCREEN NEGATIVE; URINE COCAINE SCREEN NEGATIVE; URINE METHADONE SCREEN NEGATIVE; URINE PHENCYCLIDINE SCREEN NEGATIVE
[2018-12-05 06:30] LABS: URINE MARIJUANA (THC) SCREEN UNCONFIRMED POSITIVE
[2018-12-05] MEDS: IPRATROPIUM/ALBUTEROL 0.5-2.5 MG/3 ML AMPUL NEB SCH ×2 (07:36→16:19)
--- NOTE | 2018-12-05 09:18 | EKG REPORT ---
SEVERITY:- ABNORMAL ECG - SINUS TACHYCARDIA MULTIPLE VENTRICULAR PREMATURE COMPLEXES : Confirmed by: Arturo Owens 05-Dec-2018 09:17:57
--- NOTE | 2018-12-05 09:44 | Progress Note ---
Provider Note Provider Note: This is a 53 years old male patient presented with chief complaint of difficulty breathing, shortness of breath and a cough. His CT of the chest revealed bibasilar consolidation which is compatible with pneumonia. Patient has been on Levaquin and breathing treatment. I seen this patient and accepted.
[2018-12-05] MEDS ORDERED: METHYLPREDNISOLONE INJ 40 MG/1 ML SDV IV SCH (10:00)
[2018-12-05] MEDS: METHYLPREDNISOLONE INJ 125 MG/2 ML SDV IV SCH ×2 (10:39→18:03)
[2018-12-05] MEDS: FLUTICASONE NASAL SPRAY 50 MCG/SPRY 120 SPRAY/16 GM NASL SCH ×2 (10:40→21:05)
[2018-12-05] MEDS: CEFEPIME 2 GM/D5W RTU 2 GM/50 ML RTUPB IV SCH ×2 (10:42→21:05)
[2018-12-05] MEDS ORDERED: DILTIAZEM HCL INJ 25 MG/5 ML VIAL ONE (21:40)
[2018-12-05] MEDS ORDERED: LEVOFLOXACIN 750 MG/D5W RTU 750 MG/150 ML RTUPB IV SCH (22:00)
[2018-12-05] MEDS: ADENOSINE INJ/PF 6 MG/2 ML SDV IV ONE ×5 (22:02→22:12)
[2018-12-05] MEDS ORDERED: AMIODARONE HCL INJ 150 MG/3 ML VIAL IV ONE ×2 (22:07→22:13)
[2018-12-05] MEDS: AMIODARONE HCL INJ 150 MG/3 ML VIAL IV ONE ×2 (22:10→22:15)
[2018-12-05] MEDS: VERAPAMIL HCL INJ/PF 5 MG/2 ML SDV IV ONE ×2 (22:15→22:18)
[2018-12-05] MEDS ORDERED: DEXTROSE 5%-WATER 500 ML with AMIODARONE HCL 900 MG IV PRN ×2 (22:22)
[2018-12-05] MEDS ORDERED: ASPIRIN 81 MG TABLET, CHEWABLE PO ONE (22:22)
[2018-12-05 22:33] LABS: ANION GAP 8 (5-19); BLOOD UREA NITROGEN 11 mg/dL (7-20); CALCIUM 9.1 mg/dL (8.4-10.2); CARBON DIOXIDE 27 mmol/L (22-30); CHLORIDE 104 mmol/L (98-107); GLUCOSE 157 mg/dL (75-110); POTASSIUM 3.9 mmol/L (3.6-5.0); SODIUM 138.6 mmol/L (137-145)
--- NOTE | 2018-12-05 22:47 | PDOC CONSULTATION ---
Consultation-Blank Consultation: CARDIOLOGY CONSULATATION on 12/05/2018 at 10:20 pm. REASON FOR CONSULTATION: Patient with rapid SVT, not responding to IV Cardizem. HISTORY of PRESENT ILLNESS: Patient is a 53-year-old male with no major past medical history except for tobacco abuse, and history and physical exam conducive with COPD, and treated for pneumonia, developed sudden onset of rapid heartbeat. The rhythm was in SVT with a rate in the 220s, with a stable blood pressure the patient had some beginnings of some heartburn, and in spite of the patient given Cardizem he did not convert to sinus rhythm. The patient subsequently was given adenosine 6 mg IV push with a repeat 12 mg IV push which again did not terminate the SVT, but showed underlying atrial flutter/fibrillation. Hence the SVT indeed was atrial flutter. The patient was given a bolus of amiodarone and subsequently started on amiodarone drip. Soon after the patient converted to sinus rhythm. At present the patient denies any chest pain or discomfort. There is no increase in his shortness of breath. He does have some orthopnea but no PND. There is no leg edema. There is no TIA CVA symptoms. On further questioning the patient states since the past few months he has been having intermittent episodes of short duration of rapid palpitations, without chest pain or increased shortness of breath or dizziness, near-syncope or syncope. The patient is in sinus rhythm on amiodarone drip, and will be transferred to the ICU for further close observation. The patient's admission 6 chest x-ray and CTA of the chest are diagnostic of a bibasilar pneumonia, with no pulmonary emboli. PAST MEDICAL HISTORY: He has no history of hypertension or diabetes mellitus. There is no history of TIA CVA. Although the patient has no formal diagnosis of COPD, the patient is a chronic heavy smoker, and his physical exam and some of the history is conducive with a diagnosis of COPD. There is no history of thyroid disease. There is no history of TIA or CVA. PAST SURGICAL HISTORY: None. FAMILY HISTORY: Is positive for COPD. He states that his mother had coronary artery disease and heart problems. ALLERGIES: The patient has no known allergies. SOCIAL HISTORY the patient is a every day smoker, and has been smoking for a long time. He has no history of EtOH abuse. His urine is tested positive positive for marijuana. DISPOSITION: The patient is a full code. His is a surrogate healthcare decision maker. REVIEW SYSTEMS: CONSTITUTIONAL: Denies any fever chills or rigors. No history of generalized fatigue or malaise. EYES: No history of amblyopia diplopia no history of amaurosis fugax. EARS: No history of hearing loss, no tinnitus, and no vertigo. NOSE: No history of hayfever, no nosebleeds, and no nasal polyps. MOUTH: NO HISTORY OF ALTERED TASTE SENSATION. NO HISTORY OF ULCERS IN THE MOUTH. THROAT: No odynophagia or dysphagia. No recurrent sore throats. SKIN: No history of pruritus. No history of psoriasis. No history of skin cancer. No history of yellowish discoloration of the skin. NECK: No history of neck pain. No swelling in the neck. LUNGS: Although the patient has no prior history of a diagnosis COPD the patient was admitted with increasing shortness of breath cough with yellowish sputum production and wheezing. The patient's exam and history is conducive with COPD as also the patient is a heavy smoker. There is no history of pulmonary embolism. NO NO SYMPTOMS OF UPPER OR LOWER RESPIRATORY TRACT INFECTIONS. No history of sleep apnea. HEART: No history of hypertension. No history of [place] or coronary artery disease. No history of congestive heart failure. History of rapid palpitations off and on lasting a short period of time, this episode in the hospital being the longest episode. The patient most likely has a history of a paroxysmal atrial flutter/fibrillation. No history of congestive heart failure. No history of leg edema. No history of PND. Recent symptoms of orthopnea especially when he developed the cough and sputum production. Prior to that no orthopnea. No history of near syncope or syncope or dizziness. No history of sudden . GI: No history of GI bleed. No history of GI fatty food intolerance. No history of hepatitis or jaundice. No history of GI bleed. No history of altered bowel movements. MUSCULOSKELETAL: Denies arthritis or collagen vascular disease. RENAL: No symptoms of enlarged prostate. No history of chronic kidney disease. No history of hematuria pyuria or dysuria. No symptoms of UTI. OPERATIONS MANAGER STATION: No history of TIA CVA. No history of headaches migraines or seizures. No history of gait imbalance. PSYCHIATRIC: Although he does not have a formal diagnosis of anxiety, as talking to his and looking at the patient at present the patient does have anxiety which has been untreated. No history of depression no history of suicidal ideation no history of homicidal ideation. VASCULAR: No history of calf or buttock claudication. No history of DVT. HEMATOLOGICAL. No history of bleeding diathesis. No history of blood dyscrasias. No history of clotting disorders.. No history of lymphomas. No history of anemia. PHYSICAL EXAMINATION: The patient is a frail build. In spite of his heart rate is in no acute distress. He is well-groomed Selected Entries 12/05/18 12/05/18 12/05/18 12:42 13:00 19:11 Temperature 97.4 F 97.7 F Temperature Oral Oral Source Pulse Rate 95 91 Heart Rate ( Monitors) Respiratory 22 H 24 H Rate Blood Pressure 148/69 H 176/73 H Blood Pressure 95 107 Mean BP Location Left Arm Right Arm BP Position Sitting Supine O2 Sat by Pulse 96 96 Oximetry Oxygen Flow 2.00 2.00 Rate Oxygen Delivery Nasal Cannula Nasal Cannula Method O2 Sat by Pulse 92 Oximetry by Telemetry 12/05/18 12/05/18 12/05/18 22:00 22:36 22:37 Temperature Temperature Source Pulse Rate Heart Rate ( 227 Monitors) Respiratory 26 H Rate Blood Pressure 159/86 H Blood Pressure 110 Mean BP Location BP Position O2 Sat by Pulse 94 Oximetry Oxygen Flow Rate Oxygen Delivery Method O2 Sat by Pulse 91 L Oximetry by Telemetry Later the patient converted to sinus rhythm with a heart rate of 104 bpm with a stable blood pressure. HEAD: Is atraumatic normocephalic. EYES: Pupils are equal round regular react to light accommodation. There is no conjunctival pallor. There is no scleral icterus. External ocular movements are normal ENT: TMs normal, nares patent, oropharynx clear without exudates. Moist mucous membranes. NECK: Normal range of motion, supple without lymphadenopathy or JVD. Carotids are equal there is no bruits. There is no thyromegaly. There is no accessory muscles of respiration in use. Trachea central LUNGS: There is diminished air entry and prolonged expiration throughout. There is a few scattered rhonchi. There is no wheezing. There is dry crackles in both bases. There is no rales of CHF. There is hyperresonance on percussion. On palpation there is no chest wall tenderness. HEART: S1-S2 is heard. S1 is of normal intensity. There is no S3 gallop. There is no S4 gallop. There is systolic murmur left sternal border and apex without radiation. There is no rub.. ABDOMEN: Soft, nontender, normoactive bowel sounds. There is no hepatosplenic megaly no guarding, no rebound. No masses appreciated. EXTREMITIES: Normal range of motion, no pitting or edema. No clubbing or cyanosis. Femorals are well felt. There is no femoral bruits. Leg pulses are well felt. There is no DVT or cellulitis. There is no calf tenderness NEUROLOGICAL: Cranial nerves II through XII grossly intact. Normal speech, normal gait. The patient is awake alert oriented x3 with no focal deficits. PSYCH: Normal mood, normal affect. The patient judgment and insight are intact SKIN: Warm, Dry, normal turgor, no rashes or lesions noted. There is no petechia or ecchymosis. 12/04/18 12/04/18 12/04/18 19:26 19:26 19:26 WBC 13.8 H RBC 5.17 Hgb 17.2 H Hct 49.4 MCV 96 MCH 33.2 MCHC 34.8 RDW 12.5 Plt Count 258 Seg Neutrophils % 80.5 H Lymphocytes % 8.6 L Monocytes % 10.4 Eosinophils % 0.2 Basophils % 0.3 Absolute Neutrophils 11.1 H Absolute Lymphocytes 1.2 Absolute Monocytes 1.4 Absolute Eosinophils 0.0 Absolute Basophils 0.0 Carbonic Acid HCO3/H2CO3 Ratio ABG pH ABG pCO2 ABG pO2 ABG HCO3 ABG Total CO2 ABG O2 Saturation ABG Base Excess FiO2 Sodium Potassium Chloride Carbon Dioxide Anion Gap BUN Creatinine Est GFR (Non-Af Amer) Glucose Calcium Creatine Kinase CK-MB (CK-2) Troponin I Total Protein 7.7 Albumin 4.4 Urine Opiates Screen Urine Methadone Screen Ur Barbiturates Screen Ur Phencyclidine Scrn Ur Amphetamines Screen U Benzodiazepines Scrn Urine Cocaine Screen U Marijuana (THC) Screen Influenza A (Rapid) NEGATIVE Influenza B (Rapid) NEGATIVE 12/04/18 12/05/18 12/05/18 23:44 02:49 03:13 WBC 12.4 H RBC 4.35 Hgb 14.5 D Hct 41.2 MCV 95 MCH 33.4 MCHC 35.2 RDW 13.0 Plt Count 223 Seg Neutrophils % 77.9 Lymphocytes % 10.9 L Monocytes % 10.5 Eosinophils % 0.1 Basophils % 0.6 Absolute Neutrophils 9.7 H Absolute Lymphocytes 1.3 Absolute Monocytes 1.3 Absolute Eosinophils 0.0 Absolute Basophils 0.1 Carbonic Acid 1.07 HCO3/H2CO3 Ratio 22:1 ABG pH 7.45 ABG pCO2 35.5 ABG pO2 69.8 L ABG HCO3 24.1 H ABG Total CO2 25.2 ABG O2 Saturation 94.8 ABG Base Excess 0.6 FiO2 2L Sodium Potassium Chloride Carbon Dioxide Anion Gap BUN Creatinine Est GFR (Non-Af Amer) Glucose Calcium Creatine Kinase CK-MB (CK-2) Troponin I 0.019 Total Protein Albumin Urine Opiates Screen Urine Methadone Screen Ur Barbiturates Screen Ur Phencyclidine Scrn Ur Amphetamines Screen U Benzodiazepines Scrn Urine Cocaine Screen U Marijuana (THC) Screen Influenza A (Rapid) Influenza B (Rapid) 12/05/18 12/05/18 12/05/18 03:13 05:30 22:02 WBC RBC Hgb Hct MCV MCH MCHC RDW Plt Count Seg Neutrophils % Lymphocytes % Monocytes % Eosinophils % Basophils % Absolute Neutrophils Absolute Lymphocytes Absolute Monocytes Absolute Eosinophils Absolute Basophils Carbonic Acid HCO3/H2CO3 Ratio ABG pH ABG pCO2 ABG pO2 ABG HCO3 ABG Total CO2 ABG O2 Saturation ABG Base Excess FiO2 Sodium 137.8 138.6 Potassium 3.7 3.9 Chloride 105 104 Carbon Dioxide 24 27 Anion Gap 9 8 BUN 8 11 Creatinine 0.52 0.50 L Est GFR (Non-Af Amer) > 60 > 60 Glucose 133 H 157 H Calcium 8.3 L 9.1 Creatine Kinase CK-MB (CK-2) Troponin I Total Protein Albumin Urine Opiates Screen UNCONFIRMED POSITIVE Urine Methadone Screen NEGATIVE Ur Barbiturates Screen NEGATIVE Ur Phencyclidine Scrn NEGATIVE Ur Amphetamines Screen NEGATIVE U Benzodiazepines Scrn NEGATIVE Urine Cocaine Screen NEGATIVE U Marijuana (THC) Screen UNCONFIRMED POSITIVE Influenza A (Rapid) Influenza B (Rapid) 12/05/18 12/05/18 22:02 22:02 WBC RBC Hgb Hct MCV MCH MCHC RDW Plt Count Seg Neutrophils % Lymphocytes % Monocytes % Eosinophils % Basophils % Absolute Neutrophils Absolute Lymphocytes Absolute Monocytes Absolute Eosinophils Absolute Basophils Carbonic Acid HCO3/H2CO3 Ratio ABG pH ABG pCO2 ABG pO2 ABG HCO3 ABG Total CO2 ABG O2 Saturation ABG Base Excess FiO2 Sodium Potassium Chloride Carbon Dioxide Anion Gap BUN Creatinine Est GFR (Non-Af Amer) Glucose Calcium Creatine Kinase 68 CK-MB (CK-2) 2.04 Troponin I < 0.012 Total Protein Albumin Urine Opiates Screen Urine Methadone Screen Ur Barbiturates Screen Ur Phencyclidine Scrn Ur Amphetamines Screen U Benzodiazepines Scrn Urine Cocaine Screen U Marijuana (THC) Screen Influenza A (Rapid) Influenza B (Rapid) 12/05/18 01:02 Acetaminophen [Tylenol 325 mg Tablet] 650 mg PO Q4HP PRN Hydralazine HCl [Apresoline Inj/Pf 20 mg/1 ml Sdv] 10 mg IV Q6HP PRN Ipratropium/Albuterol Sulfate [Duoneb 3 ml Ampul] 3 ml NEB [id number] PRN 12/05/18 05:45 Hydrocodone Bit/Homatropine [Hycodan 5-1.5 mg Tablet] 1 tab PO Q6HP PRN 12/05/18 06:00 Lansoprazole [Prevacid 30 mg Odt Tablet] 30 mg PO BID@0600,1700 12/05/18 10:00 Cefepime 2 gm/D5w RTU [Maxipime RTU 2 gm-D5w 50 ml Premix Bag] 2 gm in 50 ml IV Q12 Fluticasone Propionate [Flonase Nasal [place] 50 Mcg/[place] 16 gm] 2 spray NASL Q12 1. Paroxysmal atrial fibrillation/flutter [SVT].: At present in sinus rhythm on IV amiodarone. In view of the patient's significant COPD amiodarone is not a very good drug for this patient. Since the patient is in sinus rhythm we will stop the patient's amiodarone tomorrow if the patient continues to be in sinus rhythm and start the patient on a Cardizem drip. Will later place the patient on p.o. Cardizem. 2. Bibasilar pneumonia: Continue antibiotics. 3. COPD with possibly acute exacerbation. 4. Anxiety: The patient may benefit from anti-anxiolytic therapy. 5. Tobacco abuse: Tobacco cessation counseling done. 3 minutes spent on this. The patient's corrected Chadvasc 2 score is 0. Hence at present would continue patient on Lovenox 1 mg/kg subcutaneously every 12 hours, and if no recurrence of atrial fibrillation/flutter would place the patient on aspirin 325 mg p.o. da rosamaria. [The patient has no hypertension, he is only 53 years old, and there is no history of diabetes mellitus or heart failure, or coronary artery disease] Patient has been transferred to ICU on amiodarone drip. Will see if we can switch the patient to Cardizem drip, since amiodarone is not a very good drug for this patient with significant COPD. Later we will get an echocardiogram. Medical decision making is of high complexity. Management plan discussed with the hospitalist attending taking care of this patient. The patient is a full code, and his is his surrogate healthcare decision maker/medications reviewed, and medications adjusted after discussions with the attending physician. 60 minutes spent on this patient with more than 50% of time spent in direct patient care. Later the patient was seen in the ICU, and he was very stable.
[2018-12-05 22:51] LABS: CREATINE KINASE MB 2.04 ng/mL (<4.55)
[2018-12-05 22:56] LABS: TROPONIN I < 0.012 ng/mL
--- NOTE | 2018-12-05 23:02 | EKG REPORT ---
SEVERITY:- ABNORMAL ECG - SUPRAVENTRICULAR TACHYCARDIA REPOLARIZATION ABNORMALITY, PROB RATE RELATED : Confirmed by: Arturo Owens 05-Dec-2018 23:01:46
[2018-12-05] MEDS ORDERED: PIPERACILLIN/TAZOBACTAM 3.375 GM VIAL IV PRN (23:04)
[2018-12-05] MEDS ORDERED: PIPERACILLIN/TAZOBACTAM 4.5 GM VIAL IV ONE (23:55)
[2018-12-06] MEDS: IPRATROPIUM BROMIDE 0.02% NEB 0.5 MG/2.5 ML AMPUL NEB SCH ×4 (00:01→23:48)
[2018-12-06] MEDS: LEVALBUTEROL HCL NEB 1.25 MG/3 ML AMPUL NEB SCH ×4 (00:01→23:48)
[2018-12-06] MEDS: ADENOSINE INJ/PF 6 MG/2 ML SDV IV ONE (00:12)
[2018-12-06] MEDS: PIPERACILLIN SODIUM/TAZOBACTAM 4.5 GM in NORMAL SALINE 100 ML IV SCH ×2 (00:22→05:35)
[2018-12-06] MEDS: METHYLPREDNISOLONE INJ 125 MG/2 ML SDV IV SCH ×3 (02:10→17:40)
[2018-12-06] MEDS: LANSOPRAZOLE 30 MG TAB.RAP.DR PO SCH ×2 (05:35→17:40)
[2018-12-06 06:31] LABS: ABSOLUTE LYMPHOCYTES (AUTO) 0.7 10^3/uL (0.5-4.7); ABSOLUTE MONOCYTES (AUTO) 0.6 10^3/uL (0.1-1.4); ABSOLUTE NEUT (AUTO) 9.1 10^3/uL (1.7-8.2); BASOPHILS % (AUTO) 0.2 % (0-2); HEMATOCRIT 37.7 % (37.9-51.0); LYMPHOCYTES % (AUTO) 6.6 % (13-45); MEAN CORPUSCULAR HGB CONC 34.4 g/dL (32.0-36.0); MEAN CORPUSCULAR VOLUME 96 fl (80-97); MONOCYTES % (AUTO) 6.1 % (3-13); PLATELET COUNT 242 10^3/uL (150-450); RED BLOOD COUNT 3.93 10^6/uL (4.35-5.55); RED CELL DISTRIBUTION WIDTH 12.8 % (11.5-14.0); SEGMENTED NEUTROPHILS % (AUTO) 87.1 % (42-78); TOTAL CELLS COUNTED % (AUTO) 100 %; WHITE BLOOD COUNT 10.4 10^3/uL (4.0-10.5)
[2018-12-06 06:54] LABS: ALANINE AMINOTRANSFERASE 36 U/L (21-72); ALBUMIN 3.2 g/dL (3.5-5.0); ALKALINE PHOSPHATASE 124 U/L (38-126); ANION GAP 9 (5-19); ASPARTATE AMINO TRANSFERASE 26 U/L (17-59); BILIRUBIN,DIRECT 0.3 mg/dL (0.0-0.4); BILIRUBIN,TOTAL 0.5 mg/dL (0.2-1.3); BLOOD UREA NITROGEN 11 mg/dL (7-20); CALCIUM 8.9 mg/dL (8.4-10.2); CARBON DIOXIDE 27 mmol/L (22-30); CHLORIDE 105 mmol/L (98-107); CREATINE KINASE 54 U/L (55-170); GLUCOSE 161 mg/dL (75-110); POTASSIUM 3.4 mmol/L (3.6-5.0); SODIUM 140.9 mmol/L (137-145); TOTAL PROTEIN 6.2 g/dL (6.3-8.2)
[2018-12-06 07:05] LABS: CREATINE KINASE MB 2.71 ng/mL (<4.55); TROPONIN I 0.058 ng/mL
[2018-12-06 07:13] LABS: FREE T3 2.83 pg/mL (2.77-5.27); FREE T4 (FREE THYROXINE) 2.27 ng/dL (0.78-2.19)
[2018-12-06 07:28] LABS: THYROID STIMULATING HORMONE 0.88 uIU/mL (0.47-4.68)
--- NOTE | 2018-12-06 09:20 | EKG REPORT ---
SEVERITY:- ABNORMAL ECG - SINUS RHYTHM PROLONGED QT INTERVAL : Confirmed by: Arturo Owens 06-Dec-2018 09:20:04
[2018-12-06] MEDS ORDERED: DILTIAZEM HCL/D5W 125 MG/125 ML RTUINJ IV ONE (10:08)
[2018-12-06] MEDS ORDERED: DILTIAZEM HCL/D5W 125 MG/125 ML RTUINJ IV PRN (10:11)
[2018-12-06] MEDS: ENOXAPARIN SODIUM INJ 60 MG/0.6 ML DISP.SYRIN SUBCUT SCH ×2 (10:12→21:17)
[2018-12-06] MEDS: ASPIRIN 81 MG TABLET, CHEWABLE PO SCH (10:12)
[2018-12-06] MEDS: CEFEPIME 2 GM/D5W RTU 2 GM/50 ML RTUPB IV SCH ×2 (10:13→21:18)
[2018-12-06] MEDS: FLUTICASONE NASAL SPRAY 50 MCG/SPRY 120 SPRAY/16 GM NASL SCH ×2 (10:13→21:18)
[2018-12-06 16:02] LABS: CREATINE KINASE MB 2.81 ng/mL (<4.55); TROPONIN I 0.028 ng/mL
--- NOTE | 2018-12-06 20:15 | PDOC PROGRESS REPORT ---
Subjective Progress Note for:: 12/06/18 Subjective:: spoke with patient and family at bedside. he doesn't have any PCP but goes to urgent care for all his needs. he tells me that for over a year he's been having episodes palpitations and SOB of breath along with it- usually for a few mins- states it normally resolves on its own. states he's never seen a PCP or application defense manager about this. he was not on any medications prior to coming to the hospital - unfortunately he doesn't have any insurance. currently he has no symptoms- denies chest pain, SOB, abdominal pain, N/v or dizziness. last night around 9pm he SVT with HR >220. he was administered adenosine and transferred to the ICU for further care. Reason For Visit: COPD EXACERBATION,PNEUMONIA Physical Exam Vital Signs: Temp Pulse Resp BP Pulse Ox 97.7 F 67 20 158/74 H 96 12/06/18 12:00 12/06/18 14:20 12/06/18 12:00 12/06/18 12:00 12/06/18 12:00 Intake & Output 12/05/18 12/06/18 12/07/18 06:59 06:59 06:59 Intake Total 1700 3111 Output Total 250 1075 Balance 1450 2036 Weight 125 lb 10.616 oz 125 lb 14.143 oz Results Laboratory Results: 12/06/18 06:10 12/06/18 06:10 12/05/18 12/06/18 12/06/18 22:02 06:10 06:10 WBC 10.4 RBC 3.93 L Hgb 13.0 L Hct 37.7 L MCV 96 MCH 33.0 MCHC 34.4 RDW 12.8 Plt Count 242 Seg Neutrophils % 87.1 H Lymphocytes % 6.6 L Monocytes % 6.1 Eosinophils % 0.0 Basophils % 0.2 Absolute Neutrophils 9.1 H Absolute Lymphocytes 0.7 Absolute Monocytes 0.6 Absolute Eosinophils 0.0 Absolute Basophils 0.0 Sodium 138.6 140.9 Potassium 3.9 3.4 L Chloride 104 105 Carbon Dioxide 27 27 Anion Gap 8 9 BUN 11 11 Creatinine 0.50 L 0.49 L Est GFR ( Amer) > 60 > 60 Est GFR (Non-Af Amer) > 60 > 60 Glucose 157 H 161 H Calcium 9.1 8.9 Total Bilirubin 0.5 AST 26 ALT 36 Alkaline Phosphatase 124 Total Protein 6.2 L Albumin 3.2 L TSH Free T4 Free T3 pg/mL 12/06/18 06:10 WBC RBC Hgb Hct MCV MCH MCHC RDW Plt Count Seg Neutrophils % Lymphocytes % Monocytes % Eosinophils % Basophils % Absolute Neutrophils Absolute Lymphocytes Absolute Monocytes Absolute Eosinophils Absolute Basophils Sodium Potassium Chloride Carbon Dioxide Anion Gap BUN Creatinine Est GFR ( Amer) Est GFR (Non-Af Amer) Glucose Calcium Total Bilirubin AST ALT Alkaline Phosphatase Total Protein Albumin TSH 0.88 Free T4 2.27 H Free T3 pg/mL 2.83 12/04/18 12/05/18 12/05/18 23:44 22:02 22:02 Creatine Kinase 68 CK-MB (CK-2) 2.04 Troponin I 0.019 < 0.012 12/06/18 12/06/18 06:10 06:10 Creatine Kinase 54 L CK-MB (CK-2) 2.71 Troponin I 0.058 Impressions: Chest X-Ray 12/04/18 18:00 IMPRESSION: Chronic lung changes with no acute cardiopulmonary findings. Chest/Abdomen CTA 12/04/18 23:26 IMPRESSION: Bibasilar pneumonia on background of emphysema. No aortic dissection or aneurysm. No pulmonary embolus. Assessment & Plan - Diagnosis (1) COPD exacerbation Is this a current diagnosis for this admission?: Yes Plan: He still has expiratory wheezing on exam and currently on Solu-Medrol 60 mg IV every 8h. I will start to taper down as he improves. He is a longtime smoker and likely has underlying COPD-CTA chest was done which showed signs of emphysema.. Unfortunately he does not have a regular physician that he follows and usually goes to the urgent care for follow-ups of acute medical problems. Continue with Xopenex every 8 hours. (2) Pneumonia Qualifiers: Pneumonia type: due to unspecified organism Laterality: bilateral Lung location: unspecified part of lung Qualified Code(s): J18.9 - Pneumonia, unspecified organism Is this a current diagnosis for this admission?: Yes Plan: CTA chest was done on 12/04 and found to have bibasilar pneumonia. He was started on cefepime and Zosyn and I have DC'd the Zosyn for now. He will continue on cefepime IV. His white count has trended down, so far blood cultures and sputum cultures negative. (3) Tobacco abuse Is this a current diagnosis for this admission?: Yes Plan: Continues to currently smoke-I have counseled him on cessation. (4) GERD (gastroesophageal reflux disease) Is this a current diagnosis for this admission?: Yes (5) SVT (supraventricular tachycardia) Is this a current diagnosis for this admission?: Yes Plan: Cardiology was consulted regarding his SVT overnight. I appreciate cardiology consult. Currently is on Cardizem drip. He did receive some adenosine overnight when he initially had episodes. Currently he is on Lovenox twice daily.
--- NOTE | 2018-12-06 20:51 | Progress Note ---
Provider Note Provider Note: CARDIOLOGY PROGRESS NOTE by Dr. Leah Lynne on 12/06/2018. SUBJECTIVE: The patient remains in sinus rhythm on amiodarone drip/infusion. The patient states that shortness of breath is much better. The patient denies any chest pain or discomfort. The patient has cough producing scanty yellowish green sputum. There is no hemoptysis. There is no PND orthopnea. There is no wheezing. There is no anginal symptoms. There is no recurrence of atrial fibrillation/flutter. There is no TIA CVA symptoms. There is no bleeding on Lovenox. There is no ventricular arrhythmia seen. SUBJECTIVE: The patient is well-built and well-nourished. He is in no acute distress. He seems to be slightly anxious. Selected Entries 12/06/18 12/06/18 08:00 09:39 Temperature 97.5 F Temperature Oral Source Pulse Rate 73 Respiratory 22 H Rate Blood Pressure 151/79 H [Right Upper Arm] Blood Pressure 103 Mean [Right Upper Arm] O2 Sat by Pulse 98 Oximetry Oxygen Delivery Nasal Cannula Method ( includes room air) Oxygen Flow 2.00 Rate 12/05/18 12/06/18 12/06/18 22:02 06:10 06:10 WBC 10.4 RBC 3.93 L Hgb 13.0 L Hct 37.7 L MCV 96 MCH 33.0 MCHC 34.4 RDW 12.8 Plt Count 242 Seg Neutrophils % 87.1 H Lymphocytes % 6.6 L Monocytes % 6.1 Eosinophils % 0.0 Basophils % 0.2 Absolute Neutrophils 9.1 H Absolute Lymphocytes 0.7 Absolute Monocytes 0.6 Absolute Eosinophils 0.0 Absolute Basophils 0.0 Sodium 140.9 Potassium 3.4 L Chloride 105 Carbon Dioxide 27 Anion Gap 9 BUN 11 Creatinine 0.49 L Est GFR (Non-Af Amer) > 60 Glucose 161 H Calcium 8.9 Total Bilirubin 0.5 Direct Bilirubin 0.3 Neonat Total Bilirubin Not Reportable Neonat Direct Bilirubin Not Reportable Neonat Indirect Bili Not Reportable AST 26 ALT 36 Alkaline Phosphatase 124 Creatine Kinase 54 L CK-MB (CK-2) 2.04 Troponin I < 0.012 Total Protein 6.2 L TSH Free T4 Free T3 pg/mL 12/06/18 12/06/18 06:10 06:10 WBC RBC Hgb Hct MCV MCH MCHC RDW Plt Count Seg Neutrophils % Lymphocytes % Monocytes % Eosinophils % Basophils % Absolute Neutrophils Absolute Lymphocytes Absolute Monocytes Absolute Eosinophils Absolute Basophils Sodium Potassium Chloride Carbon Dioxide Anion Gap BUN Creatinine Est GFR (Non-Af Amer) Glucose Calcium Total Bilirubin Direct Bilirubin Neonat Total Bilirubin Neonat Direct Bilirubin Neonat Indirect Bili AST ALT Alkaline Phosphatase Creatine Kinase CK-MB (CK-2) 2.71 Troponin I 0.058 Total Protein TSH 0.88 Free T4 2.27 H Free T3 pg/mL 2.83 HEAD: Is atraumatic normocephalic. EYES: Pupils are equal round regular react to light accommodation. There is no conjunctival pallor. There is no scleral icterus. External ocular movements are normal ENT: TMs normal, nares patent, oropharynx clear without exudates. Moist mucous membranes. NECK: Normal range of motion, supple without lymphadenopathy or JVD. Carotids are equal there is no bruits. There is no thyromegaly. There is no accessory muscles of respiration in use. Trachea central LUNGS: There is diminished air entry and prolonged expiration throughout. There is a few scattered rhonchi. There is no wheezing. There is dry crackles in both bases. There is no rales of CHF. There is hyperresonance on percussion. On palpation there is no chest wall tenderness. HEART: S1-S2 is heard. S1 is of normal intensity. There is no S3 gallop. There is no S4 gallop. There is systolic murmur left sternal border and apex without radiation. There is no rub.. ABDOMEN: Soft, nontender, normoactive bowel sounds. There is no hepatosplenic megaly no guarding, no rebound. No masses appreciated. EXTREMITIES: Normal range of motion, no pitting or edema. No clubbing or cyanosis. Femorals are well felt. There is no femoral bruits. Leg pulses are well felt. There is no DVT or cellulitis. There is no calf tenderness NEUROLOGICAL: Cranial nerves II through XII grossly intact. Normal speech, normal gait. The patient is awake alert oriented x3 with no focal deficits. PSYCH: Normal mood, normal affect. The patient judgment and insight are intact SKIN: Warm, Dry, normal turgor, no rashes or lesions noted. There is no petechia or ecchymosis. IMPRESSION/RECOMMENDATION: 1. Paroxysmal atrial fibrillation/flutter: At present in sinus rhythm on IV amiodarone. In view of the patient's significant COPD amiodarone is not a very good drug for this patient. Since the patient's sinus rhythm we will stop the patient's amiodarone and start the patient on a Cardizem drip. Will later place the patient on p.o. Cardizem. 2. Bibasilar pneumonia: Continue antibiotics. 3. COPD with possibly acute exacerbation. 4. Anxiety: The patient may benefit from anti-anxiolytic therapy. 5. Tobacco abuse: Tobacco cessation counseling done. 3 minutes spent on this. The patient's corrected Chadvasc 2 score is 0. Hence at present would continue patient on Lovenox, and if no recurrence of atrial fibrillation/flutter would place the patient on aspirin 325 mg p.o. daily. [The patient has no hypertension, he is only 53 years old, and there is no history of diabetes mellitus or heart failure, or coronary artery disease]. Medications reviewed. Medications adjusted. Medical decision making is of high complexity. 40 minutes spent on this patient with more than 50% time spent in direct patient care. The patient is a full code. His is his surrogate healthcare decision maker. Discussed with the patient, and the patient's and daughter as to the patient's clinical condition.
[2018-12-06 21:03] LABS: APPEARANCE,URINE SLIGHTLY-CLOUDY; BILIRUBIN,URINE NEGATIVE (NEGATIVE); COLOR,URINE YELLOW; GLUCOSE, URINE NEGATIVE (NEGATIVE); KETONES,URINE NEGATIVE (NEGATIVE); LEUKOCYTE ESTERASE,URINE NEGATIVE (NEGATIVE); NITRITE,URINE NEGATIVE (NEGATIVE); PROTEIN,URINE 30 mg/dL (NEGATIVE); URINE SPECIFIC GRAVITY 1.025; UROBILINOGEN,URINE NEGATIVE mg/dL (<2.0)
[2018-12-06] MEDS: DILTIAZEM HCL 120 MG CAP.SR.24H PO SCH (21:18)
--- NOTE | 2018-12-06 21:43 | XCELERA REPORT ---
[address] [address] Transthoracic Echocardiogram Report Name: TIFFANIE MACIEL Age: 53 yrs Gender: Male : 1965 Patient Status: Inpatient Patient Location: ICU^603^A Study Date: 12/06/2018 02:14 PM Height: 72 in Weight: 125 lb BSA: 1.7 m2 Procedure: A two-dimensional transthoracic echocardiogram with color flow and Doppler was performed. Images were not obtained from all of the standard acoustic windows due to the limited scope of the study. Reason For Study: Aflutter / A Fib / murmur History: Aflutter / A Fib / murmur. Ordering Physician: LEAH NIELSEN Performed By: Gelacio Francis Interpretation Summary No True apical 2 chamber views obtained.Hence cannot comment on the apical anterior , the basal anterior, the basal inferior and apical inferior soto.The mid anterior , the mid inferior and the rest of the LV soto contract normally. .Normal LVEF is normal and is greater than 65% in the limited views. The left ventricle is normal in size. There is normal left ventricular wall thickness. Doppler measurements suggest normal left ventricular diastolic function There is no thrombus. The right ventricle is grossly normal size. The right atrium is normal. The left atrial size is normal. The interatrial septum is intact with no evidence for an atrial septal defect. There is no Doppler evidence for an interatrial shunt There is no evidence of mitral valve prolapse. There is no vegetation seen on the mitral valve. There is no mitral valve stenosis. There is a mild amount of mitral regurgitation There is no aortic valvular vegetation. There is no aortic valve stenosis There is no LVOT obstruction. No aortic regurgitation is present. There is no tricuspid stenosis. There is a mild to moderate amount of tricuspid regurgitation There is moderate pulmonary hypertension by echo RVSP is 54 to 59 mm of Hg , with RA mean of 5 to 10. There is no pulmonic valvular stenosis. There is no pulmonic valvular regurgitation. The aortic root is normal size. There is no pericardial effusion. MMode/2D Measurements & Calculations RVDd: 2.6 cm LVIDd: 4.7 cm FS: 35.5 % Ao root diam: 2.8 cm IVSd: 0.65 cm LVIDs: 3.0 cm EDV(Teich): 103.4 ml Ao root area: 6.2 cm2 LVPWd: 0.59 cm ESV(Teich): 36.2 ml LA dimension: 2.8 cm EF(Teich): 64.9 % Doppler Measurements & Calculations MV E max abdirahman: MV P1/2t max abdirahman: Ao V2 max: LV V1 max P.9 cm/sec 85.4 cm/sec 150.3 cm/sec 3.7 mmHg MV A max abdirahman: MV P1/2t: 129.9 msec Ao max P.0 mmHg LV V1 max: 36.5 cm/sec MVA(P1/2t): 1.7 cm2 96.7 cm/sec MV E/A: 2.3 MV dec slope: 192.5 cm/sec2 MV dec time: 0.21 sec PA V2 max: TR max abdirahman: MV P1/2t-pr_phl: 110.6 cm/sec 350.2 cm/sec 65.0 msec PA max P.9 mmHgTR max P.1 mmHg Left Ventricle The left ventricle is normal in size. There is normal left ventricular wall thickness. No True apical 2 chamber views obtained.Hence cannot comment on the apical anterior , the basal anterior, the basal inferior and apical inferior soto.The mid anterior , the mid inferior and the rest of the LV soto contract normally. .Normal LVEF is normal and is greater than 65% in the limited views. Doppler measurements suggest normal left ventricular diastolic function. There is no thrombus. There is no ventricular septal defect visualized. Right Ventricle The right ventricle is grossly normal size. The right ventricle is not well visualized secondary to technical limitations. Atria The right atrium is normal. The left atrial size is normal. The interatrial septum is intact with no evidence for an atrial septal defect. There is no Doppler evidence for an interatrial shunt. Mitral Valve There is no evidence of mitral valve prolapse. There is no vegetation seen on the mitral valve. There is no mitral valve stenosis. There is a mild amount of mitral regurgitation. Aortic Valve There is no aortic valvular vegetation. There is no aortic valve stenosis. There is no LVOT obstruction. No aortic regurgitation is present. Tricuspid Valve There is no tricuspid stenosis. There is a mild to moderate amount of tricuspid regurgitation. There is moderate pulmonary hypertension by echo. RVSP is 54 to 59 mm of Hg , with RA mean of 5 to 10. Pulmonic Valve There is no pulmonic valvular stenosis. There is no pulmonic valvular regurgitation. Great Vessels The aortic root is normal size. Effusions There is no pericardial effusion. : LEAH NIELSEN > Leah Nielsen
[2018-12-06] MEDS: TRAZODONE HCL 50 MG TABLET PO PRN (22:24)
[2018-12-06] MEDS: HYDRALAZINE HCL INJ/PF 20 MG/1 ML SDV IV PRN (23:58)
[2018-12-07] MEDS: METHYLPREDNISOLONE INJ 125 MG/2 ML SDV IV SCH ×2 (01:09→18:24)
[2018-12-07] MEDS: LANSOPRAZOLE 30 MG TAB.RAP.DR PO SCH ×2 (05:35→18:24)
[2018-12-07 08:39] LABS: ABSOLUTE LYMPHOCYTES (AUTO) 0.9 10^3/uL (0.5-4.7); ABSOLUTE MONOCYTES (AUTO) 0.7 10^3/uL (0.1-1.4); ABSOLUTE NEUT (AUTO) 15.2 10^3/uL (1.7-8.2); HEMATOCRIT 37.4 % (37.9-51.0); LYMPHOCYTES % (AUTO) 5.3 % (13-45); MEAN CORPUSCULAR HEMOGLOBIN 33.1 pg (27.0-33.4); MEAN CORPUSCULAR HGB CONC 34.6 g/dL (32.0-36.0); MEAN CORPUSCULAR VOLUME 96 fl (80-97); MONOCYTES % (AUTO) 4.1 % (3-13); PLATELET COUNT 319 10^3/uL (150-450); RED BLOOD COUNT 3.92 10^6/uL (4.35-5.55); SEGMENTED NEUTROPHILS % (AUTO) 90.6 % (42-78); TOTAL CELLS COUNTED % (AUTO) 100 %; WHITE BLOOD COUNT 16.8 10^3/uL (4.0-10.5)
[2018-12-07] MEDS: LEVALBUTEROL HCL NEB 1.25 MG/3 ML AMPUL NEB SCH ×2 (08:41→16:23)
[2018-12-07] MEDS: IPRATROPIUM BROMIDE 0.02% NEB 0.5 MG/2.5 ML AMPUL NEB SCH (08:41)
[2018-12-07 09:04] LABS: ANION GAP 6 (5-19); BLOOD UREA NITROGEN 17 mg/dL (7-20); CALCIUM 8.9 mg/dL (8.4-10.2); CARBON DIOXIDE 31 mmol/L (22-30); CHLORIDE 105 mmol/L (98-107); GLUCOSE 133 mg/dL (75-110); POTASSIUM 3.5 mmol/L (3.6-5.0); SODIUM 141.6 mmol/L (137-145)
[2018-12-07] MEDS ORDERED: MORPHINE SULFATE 10 MG/ML INJ ONE (09:04)
[2018-12-07] MEDS ORDERED: MORPHINE SULFATE 10 MG/ML INJ IV ONE (09:30)
[2018-12-07] MEDS: CEFEPIME 2 GM/D5W RTU 2 GM/50 ML RTUPB IV SCH ×2 (09:37→21:40)
[2018-12-07] MEDS: DILTIAZEM HCL 120 MG CAP.SR.24H PO SCH (09:37)
[2018-12-07] MEDS: ASPIRIN 81 MG TABLET, CHEWABLE PO SCH (09:37)
[2018-12-07] MEDS: ENOXAPARIN SODIUM INJ 60 MG/0.6 ML DISP.SYRIN SUBCUT SCH (09:38)
[2018-12-07] MEDS: FLUTICASONE NASAL SPRAY 50 MCG/SPRY 120 SPRAY/16 GM NASL SCH ×2 (09:40→21:41)
--- NOTE | 2018-12-07 10:33 | PDOC PROGRESS REPORT ---
Subjective Progress Note for:: 12/07/18 Subjective:: states he doesn't feel good- feels very anxious- shakey- jittery- he just had xopenex treatment and that made it worse. states he feels pressure in his chest but he believes this is all due to his anxiety. states he doesn't like being in the hospital and wants to go home soon. denies chest pain, SOB, abdominal pain, n/v or dizziness. Reason For Visit: COPD EXACERBATION,PNEUMONIA Physical Exam Vital Signs: Temp Pulse Resp BP Pulse Ox 97.6 F 78 14 143/86 H 97 12/07/18 08:00 12/07/18 08:42 12/07/18 08:42 12/07/18 08:00 12/07/18 08:42 Intake & Output 12/06/18 12/07/18 12/08/18 06:59 06:59 06:59 Intake Total 3111 261 Output Total 1075 4300 Balance 2036 -4039 Weight 125 lb 14.143 oz 126 lb 8.725 oz Results Laboratory Results: 12/07/18 08:28 12/07/18 08:28 12/06/18 12/07/18 12/07/18 20:30 08:28 08:28 WBC 16.8 H RBC 3.92 L Hgb 13.0 L Hct 37.4 L MCV 96 MCH 33.1 MCHC 34.6 RDW 13.0 Plt Count 319 Seg Neutrophils % 90.6 H Lymphocytes % 5.3 L Monocytes % 4.1 Eosinophils % 0.0 Basophils % 0.0 Absolute Neutrophils 15.2 H Absolute Lymphocytes 0.9 Absolute Monocytes 0.7 Absolute Eosinophils 0.0 Absolute Basophils 0.0 Sodium 141.6 Potassium 3.5 L Chloride 105 Carbon Dioxide 31 H Anion Gap 6 BUN 17 Creatinine 0.54 Est GFR ( Amer) > 60 Est GFR (Non-Af Amer) > 60 Glucose 133 H Calcium 8.9 Magnesium 2.5 H Urine Color YELLOW Urine Appearance SLIGHTLY-CLOUDY Urine pH 6.0 Ur Specific [place] 1.025 Urine Protein 30 H Urine Glucose (UA) NEGATIVE Urine Ketones NEGATIVE Urine Blood NEGATIVE Urine Nitrite NEGATIVE Ur Leukocyte Esterase NEGATIVE Urine WBC (Auto) 1 Urine RBC (Auto) 0 12/04/18 12/05/18 12/05/18 23:44 22:02 22:02 Creatine Kinase 68 CK-MB (CK-2) 2.04 Troponin I 0.019 < 0.012 12/06/18 12/06/18 12/06/18 06:10 06:10 15:20 Creatine Kinase 54 L 47 L CK-MB (CK-2) 2.71 Troponin I 0.058 12/06/18 15:20 Creatine Kinase CK-MB (CK-2) 2.81 Troponin I 0.028 Impressions: Chest X-Ray 12/04/18 18:00 IMPRESSION: Chronic lung changes with no acute cardiopulmonary findings. Chest/Abdomen CTA 12/04/18 23:26 IMPRESSION: Bibasilar pneumonia on background of emphysema. No aortic dissection or aneurysm. No pulmonary embolus. Assessment & Plan - Diagnosis (1) COPD exacerbation Is this a current diagnosis for this admission?: Yes Plan: He still has expiratory wheezing on exam. I have decreased his solumedrol to 60mg Q12 today since he's very shakey and jittery- she's never been on steroids before. He is a longtime smoker and likely has underlying COPD-CTA chest was done which showed signs of emphysema. Unfortunately he does not have a regular physician that he follows and usually goes to the urgent care for follow-ups of acute medical problems. the breathing treatments are also making him very jittery- he's on xopenex. i have stopped his atrovent and he's on duoneb PRN. will start him on maintenance symbicort - low dose now and if he tolerates will go up on it. (2) Pneumonia Qualifiers: Pneumonia type: due to unspecified organism Laterality: bilateral Lung location: unspecified part of lung Qualified Code(s): J18.9 - Pneumonia, unspecified organism Is this a current diagnosis for this admission?: Yes Plan: CTA chest was done on 12/04 and found to have bibasilar pneumonia. He was starte d on cefepime and Zosyn and I have DC'd the Zosyn for now. He will continue on cefepime IV. his WBC did trended up- but he is on solumedrol daily- she's afebrile- will continue to monitor, so far blood cultures and sputum cultures negative. (3) Tobacco abuse Is this a current diagnosis for this admission?: Yes Plan: Continues to currently smoke-I have counseled him on cessation. (4) GERD (gastroesophageal reflux disease) Qualifiers: Esophagitis presence: without esophagitis Qualified Code(s): K21.9 - Gastro-esophageal reflux disease without esophagitis Is this a current diagnosis for this admission?: Yes (5) SVT (supraventricular tachycardia) Is this a current diagnosis for this admission?: Yes Plan: Cardiology was consulted regarding his SVT overnight. I appreciate cardiology consult. Currently is on Cardizem PO 120mg BID. He did receive some adenosine initially when he had the SVTs. Currently he is on Lovenox twice daily. i did get another EKG this morning and QTc is still prolonged - Time Time Spent with patient: 35 or more minutes
[2018-12-07 10:36] LABS: ARTERIAL BLOOD BASE EXCESS 4.4 mmol/L; ARTERIAL BLOOD FIO2 3L; ARTERIAL BLOOD HCO3 28.3 mmol/L (20-24); ARTERIAL BLOOD O2 SATURATION 95.5 % (94-98); ARTERIAL BLOOD PH 7.47 (7.35-7.45); ARTERIAL BLOOD PO2 72.8 mmHg (80-100); ARTERIAL BLOOD TOTAL CO2 29.6 mmol/L (23-27)
--- NOTE | 2018-12-07 10:42 | Progress Note ---
Provider Note Provider Note: forgot to add today's physical exam on prog note General- anxious appears, somewhat frail and cachectic head- NC/AT Lung- decreased breath sounds bilaterally with expiratory wheezing Heart- s1/s2 sinus tach abdo- soft, NT, BS+ Ext- distal pulses intact, no edema note Neuro- CN 2-12 intact
[2018-12-07] MEDS: BUDESONIDE/FORMOTEROL 80-4.5 MCG 60 PUFF/6.9 GM MDI IH SCH ×2 (12:00→21:41)
--- NOTE | 2018-12-07 12:16 | RADIOLOGY REPORT (SQ) ---
EXAM DESCRIPTION: CHEST SINGLE VIEW COMPLETED DATE/TIME: 12/07/2018 11:49 am REASON FOR STUDY: PNA COMPARISON: 12/04/2018 TECHNIQUE: Single frontal radiographic view of the chest acquired. NUMBER OF VIEWS: One view. LIMITATIONS: None. FINDINGS: LUNGS AND PLEURA: No pneumothorax. No consolidation or pleural effusion. Similar emphysem a and interstitial changes, left greater than right. MEDIASTINUM AND HILAR STRUCTURES: Stable. HEART AND VASCULAR STRUCTURES: Stable. BONES: No acute findings. HARDWARE: None in the chest. OTHER: No other significant finding. IMPRESSION: NO ACUTE FINDINGS. TECHNICAL DOCUMENTATION: JOB ID: [id number] [id number] [employer]- All Rights Reserved Reading location - IP/workstation name: [email or web address]
[2018-12-07] MEDS: ALPRAZOLAM 0.25 MG TABLET PO PRN (14:31)
--- NOTE | 2018-12-07 17:30 | Progress Note ---
Provider Note Provider Note: CARDIOLOGY PROGRESS NOTE by Dr. Leah Lynne on 12/07/2018. SUBJECTIVE: The patient denies any shortness of breath at present. He denies any cough or sputum production. There is no PND orthopnea. Earlier this morning after breathing treatment the patient had transient chest tightness, which did not sound anginal. This was relieved with morphine. There is no recurrence of atrial fibrillation. There is no ventricular arrhythmia seen on the monitor there is no pedal edema. There is no TIA CVA symptoms. PHYSICAL EXAMINATION: The patient is a frail build, slightly anxious, but in no acute distress she is well-groomed. Selected Entries 12/07/18 12:00 Temperature 97.7 F Temperature Oral Source Pulse Rate 90 Respiratory 18 Rate Blood Pressure 156/75 H [Right Upper Arm] Blood Pressure 102 Mean [Right Upper Arm] Blood Pressure Supine Position [Right Upper Arm] O2 Sat by Pulse 91 L Oximetry Oxygen Delivery Nasal Cannula Method ( includes room air) Oxygen Flow 4 Rate HEAD: Is atraumatic normocephalic. EYES: Pupils are equal round regular react to light accommodation. There is no conjunctival pallor. There is no scleral icterus. External ocular movements are normal ENT: TMs normal, nares patent, oropharynx clear without exudates. Moist mucous membranes. NECK: Normal range of motion, supple without lymphadenopathy or JVD. Carotids are equal there is no bruits. There is no thyromegaly. There is no accessory muscles of respirati on in use. Trachea central LUNGS: There is diminished air entry and prolonged expiration throughout. There is a few scattered rhonchi. There is no wheezing. There is no dry crackles today. There is no rales of CHF. There is hyperresonance on percussion. On palpation there is no chest wall tenderness. HEART: S1-S2 is heard. S1 is of normal intensity. There is no S3 gallop. There is no S4 gallop. There is systolic murmur left sternal border and apex without radiation. There is no rub.. ABDOMEN: Soft, nontender, normoactive bowel sounds. There is no hepatosplenic megaly no guarding, no rebound. No masses appreciated. EXTREMITIES: Normal range of motion, no pitting or edema. No clubbing or cyanosis. Femorals are well felt. There is no femoral bruits. Leg pulses are well felt. There is no DVT or cellulitis. There is no calf tenderness NEUROLOGICAL: Cranial nerves II through XII grossly intact. Normal speech, normal gait. The patient is awake alert oriented x3 with no focal deficits. PSYCH: Normal mood, normal affect. The patient judgment and insight are intact SKIN: Warm, Dry, normal turgor, no rashes or lesions noted. There is no petechia or ecchymosis. 12/06/18 12/06/18 12/07/18 06:10 15:20 08:28 WBC RBC Hgb Hct MCV MCH MCHC RDW Plt Count Seg Neutrophils % Lymphocytes % Monocytes % Eosinophils % Basophils % Absolute Neutrophils Absolute Lymphocytes Absolute Monocytes Absolute Eosinophils Absolute Basophils Sodium 141.6 Potassium 3.5 L Chloride 105 Carbon Dioxide 31 H Anion Gap 6 BUN 17 Creatinine 0.54 Est GFR (Non-Af Amer) > 60 Glucose 133 H Calcium 8.9 Magnesium 2.5 H CK-MB (CK-2) 2.81 Troponin I 0.028 TSH 0.88 Free T4 2.27 H Free T3 pg/mL 2.83 12/07/18 08:28 WBC 16.8 H RBC 3.92 L Hgb 13.0 L Hct 37.4 L MCV 96 MCH 33.1 MCHC 34.6 RDW 13.0 Plt Count 319 Seg Neutrophils % 90.6 H Lymphocytes % 5.3 L Monocytes % 4.1 Eosinophils % 0.0 Basophils % 0.0 Absolute Neutrophils 15.2 H Absolute Lymphocytes 0.9 Absolute Monocytes 0.7 Absolute Eosinophils 0.0 Absolute Basophils 0.0 Sodium Potassium Chloride Carbon Dioxide Anion Gap BUN Creatinine Est GFR (Non-Af Amer) Glucose Calcium Magnesium CK-MB (CK-2) Troponin I TSH Free T4 Free T3 pg/mL Chest x-ray shows clearing of the pneumonia, with no acute infiltrates. The patient echocardiogram done yesterday has limited views. But the wall seen are linda normally the left ventricle ejection fractions within normal limits. The patient has moderate pulmonary hypertension. impression/RECOMMENDATION: 1. Paroxysmal atrial fibrillation/flutter: At present in sinus rhythm . We will continue the patient on Cardizem CD. Will increase the Cardizem CD to 180 mg p.o. every 12 hours. Note that the patient's Angel Luis Vascor 2 score is 0 hence will increase the patient's aspirin to 325 mg p.o. daily 2. Bibasilar pneumonia: Continue antibiotics. This seems to have resolved chest x-ray shows clearance of the pneumonia 3. COPD with possibly acute exacerbation. This is improved patient slowly back to baseline. 4. Anxiety: The patient may benefit from anti-anxiolytic therapy. 5. Moderate Pulmonary hypertension: The patient is counseled to stop smoking. I suspect the pulmonary hypertension will be lesser later on, since this echocardiogram was done in the acute setting of her pneumonia and acute exacerbation of COPD. 6. Tobacco abuse: Ill effects of tobacco have been re-stressed with the patient. Medications reviewed, medications adjusted. Medical decision making is now of high complexity, due to the need of adding medications, and changing doses of medications. 40 minutes spent on this patient more than 50% of time spent in direct patient care the patient's echo findings, the chest x-ray findings, and the lab data have been discussed with the patient and his . The importance of cessation of smoking has been discussed with the patient with the being in the room. [This is with the consent of the patient.] Discussed with the attending physician the management plan of this patient. Would recommend transfer out of the ICU to a telemetry unit. Later once the COPD settles down the patient goes back to his baseline, then as an outpatient will get a IV Lexiscan Cardiolite stress test versus an exercise Cardiolite stress test, if the patient can exercise.
[2018-12-07] MEDS ORDERED: POTASSIUM CHLORIDE 10 MEQ CAPSULE.ER PO ONE (17:33)
--- NOTE | 2018-12-07 18:31 | EKG REPORT ---
SEVERITY:- BORDERLINE ECG - SINUS TACHYCARDIA BORDERLINE PROLONGED QT INTERVAL : Confirmed by: Arturo Owens 07-Dec-2018 18:30:31
[2018-12-07] MEDS: TRAZODONE HCL 50 MG TABLET PO PRN (21:40)
[2018-12-07] MEDS: DILTIAZEM HCL 180 MG CAPSULE.CR PO SCH (21:40)
[2018-12-08] MEDS: HYDRALAZINE HCL INJ/PF 20 MG/1 ML SDV IV PRN (00:21)
[2018-12-08] MEDS: METHYLPREDNISOLONE INJ 125 MG/2 ML SDV IV SCH ×2 (05:31→17:03)
[2018-12-08] MEDS: LANSOPRAZOLE 30 MG TAB.RAP.DR PO SCH ×2 (05:31→17:03)
[2018-12-08] MEDS: ALPRAZOLAM 0.25 MG TABLET PO PRN (08:08)
[2018-12-08 08:21] LABS: ABSOLUTE LYMPHOCYTES (AUTO) 0.9 10^3/uL (0.5-4.7); ABSOLUTE NEUT (AUTO) 14.2 10^3/uL (1.7-8.2); BASOPHILS % (AUTO) 0.2 % (0-2); HEMATOCRIT 40.4 % (37.9-51.0); HEMOGLOBIN 13.7 g/dL (13.5-17.0); LYMPHOCYTES % (AUTO) 5.4 % (13-45); MEAN CORPUSCULAR HEMOGLOBIN 32.8 pg (27.0-33.4); MEAN CORPUSCULAR HGB CONC 33.9 g/dL (32.0-36.0); MEAN CORPUSCULAR VOLUME 97 fl (80-97); PLATELET COUNT 350 10^3/uL (150-450); RED BLOOD COUNT 4.18 10^6/uL (4.35-5.55); RED CELL DISTRIBUTION WIDTH 13.1 % (11.5-14.0); SEGMENTED NEUTROPHILS % (AUTO) 88.4 % (42-78); TOTAL CELLS COUNTED % (AUTO) 100 %; WHITE BLOOD COUNT 16.1 10^3/uL (4.0-10.5)
[2018-12-08 08:23] LABS: VENOUS BLOOD BASE EXCESS 3.6 mmol/L; VENOUS BLOOD HCO3 28.2 mmol/L (20-32); VENOUS BLOOD PCO2 42.4 mmHg (35-63); VENOUS BLOOD PH 7.44 (7.30-7.42)
[2018-12-08 08:52] LABS: ALANINE AMINOTRANSFERASE 58 U/L (21-72); ALBUMIN 3.3 g/dL (3.5-5.0); ALKALINE PHOSPHATASE 114 U/L (38-126); ASPARTATE AMINO TRANSFERASE 32 U/L (17-59); BILIRUBIN,DIRECT 0.2 mg/dL (0.0-0.4); BILIRUBIN,TOTAL 0.6 mg/dL (0.2-1.3); BLOOD UREA NITROGEN 20 mg/dL (7-20); CALCIUM 9.1 mg/dL (8.4-10.2); CARBON DIOXIDE 31 mmol/L (22-30); CHLORIDE 107 mmol/L (98-107); GLUCOSE 127 mg/dL (75-110); TOTAL PROTEIN 6.4 g/dL (6.3-8.2)
[2018-12-08 08:57] LABS: SODIUM 141.5 mmol/L (137-145)
[2018-12-08 09:01] LABS: ANION GAP 4 (5-19)
[2018-12-08] MEDS: DILTIAZEM HCL 180 MG CAPSULE.CR PO SCH ×2 (09:07→22:29)
[2018-12-08] MEDS: CEFEPIME 2 GM/D5W RTU 2 GM/50 ML RTUPB IV SCH ×2 (09:10→22:29)
[2018-12-08] MEDS: BUDESONIDE/FORMOTEROL 80-4.5 MCG 60 PUFF/6.9 GM MDI IH SCH ×2 (09:12→22:30)
[2018-12-08] MEDS: FLUTICASONE NASAL SPRAY 50 MCG/SPRY 120 SPRAY/16 GM NASL SCH ×2 (09:12→22:30)
[2018-12-08] MEDS ORDERED: ENOXAPARIN SODIUM INJ 30 MG/0.3 ML DISP.SYRIN SUBCUT SCH (10:00)
[2018-12-08] MEDS ORDERED: ASPIRIN 81 MG TABLET, CHEWABLE PO SCH (10:00)
--- NOTE | 2018-12-08 10:06 | PDOC PROGRESS REPORT ---
Subjective Progress Note for:: 12/08/18 Subjective:: spoke with patient- he feels better now but this morning he had another episode of feeling very jittery and anxious- he had his PRN xananx 0.25mg and felt better. he has no complaints at this time- denies chest pain, SOB, abdominal pain, n/v or dizziness. Reason For Visit: COPD EXACERBATION,PNEUMONIA Physical Exam Vital Signs: Temp Pulse Resp BP Pulse Ox 96.6 F L 74 16 132/74 H 97 12/08/18 07:52 12/08/18 09:16 12/08/18 09:16 12/08/18 07:52 12/08/18 09:16 Intake & Output 12/07/18 12/08/18 12/09/18 06:59 06:59 06:59 Intake Total 261 100 50 Output Total 4300 1025 Balance -4039 -925 50 Weight 126 lb 8.725 oz 126 lb 1.671 oz General appearance: PRESENT: no acute distress, other - frail and thin appearing Head exam: PRESENT: atraumatic, normocephalic Eye exam: PRESENT: EOMI. ABSENT: conjunctival injection, scleral icterus Ear exam: PRESENT: normal external ear exam Mouth exam: PRESENT: tongue midline Teeth exam: PRESENT: poor dentation Neck exam: ABSENT: tracheal deviation Respiratory exam: PRESENT: decreased breath sounds - decreased breath sounds at the bases bilaterally- other jimenez CTA, symmetrical Cardiovascular exam: PRESENT: +S1, +S2 Pulses: PRESENT: +2 pedal pulses bilateral GI/Abdominal exam: PRESENT: normal bowel sounds, soft. ABSENT: tenderness Extremities exam: ABSENT: pedal edema Neurological exam: PRESENT: alert, awake, oriented to person, oriented to place, oriented to time, oriented to situation, CN II-XII grossly intact Skin exam: PRESENT: dry, warm Results Laboratory Results: 12/08/18 08:14 12/08/18 08:14 12/07/18 12/08/18 12/08/18 09:20 08:14 08:14 WBC 16.1 H RBC 4.18 L Hgb 13.7 Hct 40.4 MCV 97 MCH 32.8 MCHC 33.9 RDW 13.1 Plt Count 350 Seg Neutrophils % 88.4 H Lymphocytes % 5.4 L Monocytes % 6.0 Eosinophils % 0.0 Basophils % 0.2 Absolute Neutrophils 14.2 H Absolute Lymphocytes 0.9 Absolute Monocytes 1.0 Absolute Eosinophils 0.0 Absolute Basophils 0.0 Carbonic Acid 1.20 HCO3/H2CO3 Ratio 23:1 ABG pH 7.47 H ABG pCO2 40.0 ABG pO2 72.8 L ABG HCO3 28.3 H ABG O2 Saturation 95.5 ABG Base Excess 4.4 VBG pH VBG pCO2 VBG HCO3 VBG Base Excess FiO2 3L Sodium 141.5 Potassium 4.0 Chloride 107 Carbon Dioxide 31 H Anion Gap 4 L BUN 20 Creatinine 0.53 Est GFR ( Amer) > 60 Est GFR (Non-Af Amer) > 60 Glucose 127 H Calcium 9.1 Magnesium Total Bilirubin 0.6 AST 32 ALT 58 Alkaline Phosphatase 114 Total Protein 6.4 Albumin 3.3 L 12/08/18 12/08/18 08:14 08:14 WBC RBC Hgb Hct MCV MCH MCHC RDW Plt Count Seg Neutrophils % Lymphocytes % Monocytes % Eosinophils % Basophils % Absolute Neutrophils Absolute Lymphocytes Absolute Monocytes Absolute Eosinophils Absolute Basophils Carbonic Acid HCO3/H2CO3 Ratio ABG pH ABG pCO2 ABG pO2 ABG HCO3 ABG O2 Saturation ABG Base Excess VBG pH 7.44 H VBG pCO2 42.4 VBG HCO3 28.2 VBG Base Excess 3.6 FiO2 Sodium Potassium Chloride Carbon Dioxide Anion Gap BUN Creatinine Est GFR ( Amer) Est GFR (Non-Af Amer) Glucose Calcium Magnesium 2.7 H Total Bilirubin AST ALT Alkaline Phosphatase Total Protein Albumin 12/04/18 12/05/18 12/05/18 23:44 22:02 22:02 Creatine Kinase 68 CK-MB (CK-2) 2.04 Troponin I 0.019 < 0.012 12/06/18 12/06/18 12/06/18 06:10 06:10 15:20 Creatine Kinase 54 L 47 L CK-MB (CK-2) 2.71 Troponin I 0.058 12/06/18 15:20 Creatine Kinase CK-MB (CK-2) 2.81 Troponin I 0.028 Impressions: Chest/Abdomen CTA 12/04/18 23:26 IMPRESSION: Bibasilar pneumonia on background of emphysema. No aortic dissection or aneurysm. No pulmonary embolus. Chest X-Ray 12/07/18 11:26 IMPRESSION: NO ACUTE FINDINGS. Assessment & Plan - Diagnosis (1) COPD exacerbation Is this a current diagnosis for this admission?: Yes Plan: on solumedrol IV 60mg Q12, symbicort 80mg BID, and duoneb PRN. breathing is better today- less wheezing. CTA chest showed signs of emphysema. likely he has COPD from his years of smoking. i told him to follow up with [facility] after discharge (2) Pneumonia Qualifiers: Pneumonia type: due to unspecified organism Laterality: bilateral Lung location: unspecified part of lung Qualified Code(s): J18.9 - Pneumonia, unspecified organism Is this a current diagnosis for this admission?: Yes Plan: CTA chest was done on 12/04 and found to have bibasilar pneumonia. Repeat CXR shows improvement. He was started on cefepime and Zosyn and I have DC'd the Zosyn for now. He will continue on cefepime IV which was started on 12/05. likely will need 5-7 days or antibiotics. his WBC did trended up- but he is on solumedrol daily- he's afebrile- will continue to monitor, so far blood cultures and sputum cultures negative. (3) Tobacco abuse Is this a current diagnosis for this admission?: Yes Plan: Continues to currently smoke-I have counseled him on cessation. (4) GERD (gastroesophageal reflux disease) Qualifiers: Esophagitis presence: without esophagitis Qualified Code(s): K21.9 - Gastro-esophageal reflux disease without esophagitis Is this a current diagnosis for this admission?: Yes (5) SVT (supraventricular tachycardia) Is this a current diagnosis for this admission?: Yes Plan: Cardiology was consulted regarding his SVT. I appreciate cardiology consult. Currently is on Cardizem PO 180mg BID- which was increased from 120mg BID. per cardiology likely this is PAF or flutter-for AC he's on 325mg ASA- weight based lovenox d/c'd. his HR < 110 now. he's stable. He did receive some adenosine initially when he had the tachycardia. i told him that he will need cardio fol low up after discharge (6) PAF (paroxysmal atrial fibrillation) Is this a current diagnosis for this admission?: Yes Plan: see plan for SVT (7) Anxiety Is this a current diagnosis for this admission?: Yes Plan: he has been very anxious- family requested something for his nerves- i started him on xanax 0.25mg PRN and he liked it but i think he would be better served with something more long acting- i have consulted psych- i appreciate their assistance. i told him that he will need PCP follow up after discharge - Plan Summary Plan Summary: he's not on any drip or pressors. vitals are stable. i believe he's stable to downgrade.
--- NOTE | 2018-12-08 12:13 | PSYCHOLOGICAL NOTE ---
Psych Note - Psych Note Date seen by psych provider: 12/08/18 Time seen by psych provider: 08:40 - Spoke to Hospitalist at 0841. Chart review at 1036. Evalution from [id number]. Psych Note: Reason for Consult: Anxiety, medication recommendations Contact Permissions: at bedside Patient is a 53 year old male who is admitted to the ICU for COPD exacerbation and Pneumonia. A psychiatric consult was ordered due to anxiety. Attending Hospitalist noted that patient is on steroids, Duonebs and other medications that will make him jittery. Medical Problem list from current visit includes: GERD, Chest Pain, Dyspnea, Hypoxemia, Pneumonia, COPD exacerbation, tobaccos use, SVT, PAF and anxiety. Patient stated "I have been panicking, I think I can control it once I get out of here and things are situated, it's just with so many people coming in and out of my room and I am stuck here worrying about bills at home and how to pay this bill since no insurance." He denied having anxiety in the past, being on any psychiatric medications or any MH history to include inpatient hospitalization. UDS was positive for Opiates and Cannabis. Opiates likely from being administered in hospital. Patient denied marijuana use and commented they get required drug testing. Patient was alert and oriented to person, place, time and situation. Mood was anxious with congruent affect as evidenced by sitting in the corner of the room facing wall, labored breathing and observed tremulousness. He denied SI/HI and these were not presenting concerns. He did not appear to be responding to internal stimuli as evidenced by fair eye contact, answering questions appropriately when addressed, staying on topic and being engaged in evaluation. Thought processes were linear and organized. Conversational speech was a bit shaky yet understandable and audible. Intellectual abilities are estimated to be average. Insight, judgment and impulse control were fair as evidenced by discussing and processing anxiety and stresses. Attending medical staff noted patient's was in the room and often assisted him with his daily cleanliness. He had shaved and was using restroom when this clinician first came to his room. His identified while patient was admitted to the floor he was being administered lots of pain medications to include morphine. She noted patient "only takes things like Tylenol and Ibuprofen at home and even that is limited." She confirmed no MH history to include anxiety issues. She stated "he came to the hospital for breathing problems and is now a nervous wreck." She noted they were told he had the flu, which turned into pneumonia and then other complic ations. She stated "doctors that are seeing patient seem to have some conflicting information and she doesn't understand the need for Heparin." She stated patient has never had any significant issues. 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 She identified he "has not had a cigarette in 2 weeks now." Diagnosis: On medication for Pneumonia that often cause jitteriness Two weeks into not smoking cigarettes per 300.00 (F41.9) Unspecified Anxiety Disorder Medication recommendation made by the psychiatric medical provider, Dr. Efren MD., includes: Discontinue Xanax 0.25MG PO every twelve hours as needed for anxiety Add Buspar 5MG PO twice a day for anxiety/calming effect Add Effexor 37.5MG PO daily for depression/energy Impression/Plan: Patient is cleared from acute psychiatric services. He identified stress and worries outside of the hospital (working, paying bills, raising two granddaughters) and being in the hospital (feels like he has gotten sicker while being here, being stuck in the hospital, all the different people that are trying to help, no insurance and the bill). Patient is on medications for Pneumonia treatment that often cause jitteriness. Also of note is per patient has been nicotine free for the last two weeks (smoking cessation has of ten caused anxiety, mood changes). Consulted with Dr. Montero regarding the management and care of patient. Attending Hospitalist made aware of recommendations and in agreement.
[2018-12-08] MEDS: BUSPIRONE HCL 10 MG TABLET PO SCH ×2 (14:08→17:03)
[2018-12-08] MEDS: VENLAFAXINE HCL 37.5 MG CAP.SR.24H PO SCH (17:02)
[2018-12-08] MEDS: TRAZODONE HCL 50 MG TABLET PO PRN (22:29)
--- NOTE | 2018-12-08 23:10 | Progress Note ---
Provider Note Provider Note: CARDIOLOGY PROGRESS NOTE by Dr. Leah Lynne on 12/08/2018. SUBJECTIVE: The patient denies any shortness of breath. There is no PND orthopnea. He denies any cough or sputum production. There is no chest pain or discomfort. There is no recurrence of SVT or atrial flutter or there is no leg edema. With current medications patient is less anxious. Atrial fibrillation on current dose of Cardizem. There is no TIA CVA symptoms. There is no ventricular arrhythmia seen on the monitor. PHYSICAL EXAMINATION: The patient is well-built and well-nourished. In no acute distress. Selected Entries 12/08/18 12:00 Temperature 97.4 F Temperature Oral Source Pulse Rate 78 Respiratory 14 Rate Blood Pressure 135/71 H [Right Upper Arm] Blood Pressure 92 Mean [Right Upper Arm] Blood Pressure Supine Position [Right Upper Arm] Blood Pressure 135 Systolic [Right Upper Arm] O2 Sat by Pulse 90 L Oximetry Oxygen Delivery Room Air Method ( includes room air) HEAD: Is atraumatic normocephalic. EYES: Pupils are equal round regular react to light accommodation. There is no conjunctival pallor. There is no scleral icterus. External ocular movements are normal ENT: TMs normal, nares patent, oropharynx clear without exudates. Moist mucous membranes. NECK: Normal range of motion, supple without lymphadenopathy or JVD. Carotids are equal there is no bruits. There is no thyromegaly. There is no accessory muscles of respiration in use. Trachea central LUNGS: There is diminished air entry and prolonged expiration throughout. There is no rhonchi rales or wheezing. There is hyperresonance on percussion. On palpation there is no chest wall tenderness. HEART: S1-S2 is heard. S1 is of normal intensity. There is no S3 gallop. There is no S4 gallop. There is systolic murmur left sternal border and apex without radiation. There is no rub.. ABDOMEN: Soft, nontender, normoactive bowel sounds. There is no hepatosplenic megaly no guarding, no rebound. No masses appreciated. EXTREMITIES: Normal range of motion, no pitting or edema. No clubbing or cyanosis. Femorals are well felt. There is no femoral bruits. Leg pulses are well felt. There is no DVT or cellulitis. There is no calf tenderness NEUROLOGICAL: Cranial nerves II through XII grossly intact. Normal speech, normal gait. The patient is awake alert oriented x3 with no focal deficits. PSYCH: Normal mood, normal affect. The patient judgment and insight are intact SKIN: Warm, Dry, normal turgor, no rashes or lesions noted. There is no petechia or ecchymosis. 12/08/18 12/08/18 12/08/18 08:14 08:14 08:14 WBC 16.1 H RBC 4.18 L Hgb 13.7 Hct 40.4 MCV 97 MCH 32.8 MCHC 33.9 RDW 13.1 Plt Count 350 Seg Neutrophils % 88.4 H Lymphocytes % 5.4 L Monocytes % 6.0 Eosinophils % 0.0 Basophils % 0.2 Absolute Neutrophils 14.2 H Absolute Lymphocytes 0.9 Absolute Monocytes 1.0 Absolute Eosinophils 0.0 Absolute Basophils 0.0 Sodium 141.5 Potassium 4.0 Chloride 107 Carbon Dioxide 31 H Anion Gap 4 L BUN 20 Creatinine 0.53 Est GFR (Non-Af Amer) > 60 Glucose 127 H Calcium 9.1 Magnesium 2.7 H Total Bilirubin 0.6 Direct Bilirubin 0.2 Neonat Total Bilirubin Not Reportable Neonat Direct Bilirubin Not Reportable Neonat Indirect Bili Not Reportable AST 32 ALT 58 Alkaline Phosphatase 114 Total Protein 6.4 Albumin 3.3 L impression/RECOMMENDATION: 1. Paroxysmal atrial fibrillation/flutter: At present in sinus rhythm . We will continue the patient on Cardizem CD. Will increase the Cardizem CD to 180 mg p.o. every 12 hours. Continue the patient's aspirin to 325 mg p.o. daily 2. Bibasilar pneumonia: Continue antibiotics. This seems to have resolved chest x-ray shows clearance of the pneumonia. 3. COPD with possibly acute exacerbation. This is improved patient is back to baseline. 4. Anxiety: The patient may benefit from anti-anxiolytic therapy. 5. Moderate Pulmonary hypertension: The patient is counseled to stop smoking. I suspect the pulmonary hypertension will be lesser later on, since this echocardiogram was done in the acute setting of her pneumonia and acute exacerbation of COPD. 6. Tobacco abuse: Ill effects of tobacco have been re-stressed with the patient. We will check lipid levels in the morning Medications reviewed, medications adjusted. Medical decision making is now of moderate complexity. 40 minutes spent on this patient with more than 50% time spent in direct patient care. Management plan discussed with the attending physician on the case. Cardiac status is stable. We will sign off. The patient desires to follow-up with me in the office. My contact numbers and my cell phone number have been given to the patient
[2018-12-09] MEDS: HYDRALAZINE HCL INJ/PF 20 MG/1 ML SDV IV PRN
[2018-12-09 04:37] LABS: CHOLESTEROL 148.22 mg/dL (0-200); TRIGLYCERIDES 79 mg/dL (<150)
[2018-12-09 04:48] LABS: DIRECT LDL 106 mg/dL (<100)
[2018-12-09] MEDS: LANSOPRAZOLE 30 MG TAB.RAP.DR PO SCH ×2 (05:51→18:04)
--- NOTE | 2018-12-09 09:40 | PDOC PROGRESS REPORT ---
Subjective Reason For Visit: COPD EXACERBATION,PNEUMONIA Physical Exam Vital Signs: Temp Pulse Resp BP Pulse Ox 97.6 F 85 16 143/78 H 94 12/09/18 07:43 12/09/18 08:54 12/09/18 08:54 12/09/18 06:40 12/09/18 08:54 Intake & Output 12/08/18 12/09/18 12/10/18 06:59 06:59 06:59 Intake Total 100 100 Output Total 1025 1100 Balance -925 -1000 Weight 126 lb 1.671 oz 124 lb 5.451 oz Results Laboratory Results: 12/08/18 08:14 12/08/18 08:14 12/09/18 04:06 Triglycerides 79 Cholesterol 148.22 LDL Cholesterol Direct 106 H VLDL Cholesterol 16.0 HDL Cholesterol 34 L 12/06/18 20:30 Clean Catch Midstream Urine Culture - Final NO GROWTH 2 DAYS 12/04/18 12/05/18 12/05/18 23:44 22:02 22:02 Creatine Kinase 68 CK-MB (CK-2) 2.04 Troponin I 0.019 < 0.012 12/06/18 12/06/18 12/06/18 06:10 06:10 15:20 Creatine Kinase 54 L 47 L CK-MB (CK-2) 2.71 Troponin I 0.058 12/06/18 15:20 Creatine Kinase CK-MB (CK-2) 2.81 Troponin I 0.028 Impressions: Chest/Abdomen CTA 12/04/18 23:26 IMPRESSION: Bibasilar pneumonia on background of emphysema. No aortic dissection or aneurysm. No pulmonary embolus. Chest X-Ray 12/07/18 11:26 IMPRESSION: NO ACUTE FINDINGS. Assessment & Plan - Diagnosis (1) COPD exacerbation Is this a current diagnosis for this admission?: Yes Plan: on prednisone, symbicort BID, and duoneb PRN. breathing is better today- less wheezing. CTA chest showed signs of emphysema. likely he has COPD from his years of smoking. i told him to follow up with Drug Abuse Social Worker after discharge (2) Pneumonia Qualifiers: Pneumonia type: due to unspecified organism Laterality: bilateral Lung location: unspecified part of lung Qualified Code(s): J18.9 - Pneumonia, unspecified organism Is this a current diagnosis for this admission?: Yes Plan: CTA chest was done on 12/04 and found to have bibasilar pneumonia. Repeat CXR shows improvement. He was started on cefepime and Zosyn and I have DC'd the Zos yn for now. He will continue on cefepime IV which was started on 12/05. likely will need 5-7 days or antibiotics. his WBC did trended up- but he is on solumedrol daily- he's afebrile- will continue to monitor, so far blood cultures and sputum cultures negative. (3) Tobacco abuse Is this a current diagnosis for this admission?: Yes (4) GERD (gastroesophageal reflux disease) Qualifiers: Esophagitis presence: without esophagitis Qualified Code(s): K21.9 - Gastro-esophageal reflux disease without esophagitis Is this a current diagnosis for this admission?: Yes Plan: on prevacid (5) SVT (supraventricular tachycardia) Is this a current diagnosis for this admission?: Yes Plan: Cardiology was consulted regarding his SVT. I appreciate cardiology consult. Currently is on Cardizem PO 180mg BID- which was increased from 120mg BID. per cardiology likely this is PAF or flutter-for AC he's on 325mg ASA- weight based lovenox d/c'd. his HR < 110 now. he's stable. He did receive some adenosine initially when he had the tachycardia. i told him that he will need cardio follow up after discharge (6) PAF (paroxysmal atrial fibrillation) Is this a current diagnosis for this admission?: Yes Plan: see plan for SVT (7) Anxiety Is this a current diagnosis for this admission?: Yes Plan: he has been very anxious- family requested something for his nerves- i have consulted psych- i appreciate their assistance. they have started him on buspar and zyprexa i told him that he will need PCP follow up after discharge. (8) Acute respiratory failure with hypoxia Is this a current diagnosis for this admission?: Yes Plan: he has been on oxygen and initially i felt it was due to his PNA- but he's still on it- i have asked nursing to wean him as tolerated - keep Sa O2 >90% since he has COPD likely. he's on 1-2L O2 now. i have asked nursing to walk him today- if he requires oxygen then he can go home it and follow up
[2018-12-09] MEDS ORDERED: LISINOPRIL 5 MG TABLET PO SCH (10:00)
[2018-12-09] MEDS: CEFEPIME 2 GM/D5W RTU 2 GM/50 ML RTUPB IV SCH ×2 (10:48→23:35)
[2018-12-09] MEDS: FLUTICASONE NASAL SPRAY 50 MCG/SPRY 120 SPRAY/16 GM NASL SCH ×2 (10:48→23:36)
[2018-12-09] MEDS: BUDESONIDE/FORMOTEROL 80-4.5 MCG 60 PUFF/6.9 GM MDI IH SCH ×2 (10:48→23:37)
[2018-12-09] MEDS: VENLAFAXINE HCL 37.5 MG CAP.SR.24H PO SCH (10:49)
[2018-12-09] MEDS: PREDNISONE 20 MG TABLET PO SCH (10:49)
[2018-12-09] MEDS: BUSPIRONE HCL 10 MG TABLET PO SCH ×2 (10:49→18:04)
[2018-12-09] MEDS: ASPIRIN 325 MG TABLET PO SCH (10:49)
[2018-12-09] MEDS: DILTIAZEM HCL 180 MG CAPSULE.CR PO SCH ×2 (10:50→23:36)
[2018-12-10] MEDS: LANSOPRAZOLE 30 MG TAB.RAP.DR PO SCH (07:48)
[2018-12-10] MEDS ORDERED: LISINOPRIL 10 MG TABLET ONE (09:07)
[2018-12-10] MEDS: BUSPIRONE HCL 10 MG TABLET PO SCH (09:10)
[2018-12-10] MEDS: ASPIRIN 325 MG TABLET PO SCH (09:10)
[2018-12-10] MEDS: DILTIAZEM HCL 180 MG CAPSULE.CR PO SCH (09:10)
[2018-12-10] MEDS: PREDNISONE 20 MG TABLET PO SCH (09:11)
[2018-12-10] MEDS: VENLAFAXINE HCL 37.5 MG CAP.SR.24H PO SCH (09:11)
[2018-12-10] MEDS: BUDESONIDE/FORMOTEROL 80-4.5 MCG 60 PUFF/6.9 GM MDI IH SCH (09:12)
[2018-12-10] MEDS: FLUTICASONE NASAL SPRAY 50 MCG/SPRY 120 SPRAY/16 GM NASL SCH (09:12)
[2018-12-10 09:13] LABS: ABSOLUTE BASOPHILS # (AUTO) 0.1 10^3/uL (0.0-0.2); ABSOLUTE LYMPHOCYTES (AUTO) 1.8 10^3/uL (0.5-4.7); ABSOLUTE MONOCYTES (AUTO) 1.3 10^3/uL (0.1-1.4); ABSOLUTE NEUT (AUTO) 13.5 10^3/uL (1.7-8.2); BASOPHILS % (AUTO) 0.4 % (0-2); EOSINOPHILS % (AUTO) 0.1 % (0-6); HEMATOCRIT 42.6 % (37.9-51.0); HEMOGLOBIN 14.3 g/dL (13.5-17.0); LYMPHOCYTES % (AUTO) 10.7 % (13-45); MEAN CORPUSCULAR HEMOGLOBIN 32.3 pg (27.0-33.4); MEAN CORPUSCULAR HGB CONC 33.6 g/dL (32.0-36.0); MEAN CORPUSCULAR VOLUME 96 fl (80-97); MONOCYTES % (AUTO) 7.8 % (3-13); PLATELET COUNT 359 10^3/uL (150-450); RED BLOOD COUNT 4.42 10^6/uL (4.35-5.55); TOTAL CELLS COUNTED % (AUTO) 100 %; WHITE BLOOD COUNT 16.7 10^3/uL (4.0-10.5)
[2018-12-10 09:42] LABS: BLOOD UREA NITROGEN 19 mg/dL (7-20); CALCIUM 8.7 mg/dL (8.4-10.2); CARBON DIOXIDE 34 mmol/L (22-30); CHLORIDE 103 mmol/L (98-107); GLUCOSE 104 mg/dL (75-110); POTASSIUM 3.8 mmol/L (3.6-5.0)
[2018-12-10 09:48] LABS: SODIUM 139.4 mmol/L (137-145)
[2018-12-10 09:56] LABS: ANION GAP 2 (5-19)
[2018-12-10] MEDS ORDERED: LISINOPRIL 10 MG TABLET PO SCH (10:00)
[2018-12-10] MEDS ORDERED: LISINOPRIL 5 MG TABLET PO SCH (10:00)
--- NOTE | 2018-12-10 13:25 | PDOC DISCHARGE SUMMARY ---
General - Admit/Disc Date/PCP Admission Date/Primary Care Provider: 12/05/18 01:08 Discharge Date: 12/10/18 - Discharge Diagnosis (1) COPD exacerbation Is this a current diagnosis for this admission?: Yes (2) Pneumonia Is this a current diagnosis for this admission?: Yes (3) Tobacco abuse Is this a current diagnosis for this admission?: Yes (4) SVT (supraventricular tachycardia) Is this a current diagnosis for this admission?: Yes (5) PAF (paroxysmal atrial fibrillation) Is this a current diagnosis for this admission?: Yes (6) Anxiety Is this a current diagnosis for this admission?: Yes (7) Acute respiratory failure with hypoxia Is this a current diagnosis for this admission?: Yes - Additional Information Resuscitation Status: Full Code Discharge Diet: Cardiac Discharge Activity: Activity As Tolerated Prescriptions: Albuterol Sulfate [Proair Respiclick] 90 mcg IH Q4HP PRN #1 aer.[email or web address] PRN Reason: Shortness Of Breath Atorvastatin Calcium [Lipitor 40 mg Tablet] 40 mg PO QHS #30 tablet Budesonide/Formoterol Fumarate [Symbicort HFA 80-4.5 mcg Inhaler 6.9 gm] 2 puff IH Q12 #1 inhaler Buspirone HCl [Buspar 10 mg Tablet] 5 mg PO BID #60 tablet Diltiazem HCl [Cardizem Cd 180 mg Capsule] 180 mg PO Q12 #60 capsule.cr Lisinopril [Prinivil 10 mg Tablet] 20 mg PO DAILY #30 tablet Prednisone [Deltasone 20 mg Tablet] See Protocol PO ASDIR #10 tablet Venlafaxine HCl ER [Effexor Xr 37.5 mg Cap.sr] 37.5 mg PO DAILY #30 cap.sr.24h Home Medications: Albuterol Sulfate [Proair Respiclick] 90 mcg IH Q4HP PRN #1 aer.[email or web address] 12/10/18 Atorvastatin Calcium [Lipitor 40 mg Tablet] 40 mg PO QHS #30 tablet 12/10/18 Budesonide/Formoterol Fumarate [Symbicort HFA 80-4.5 mcg Inhaler 6.9 gm] 2 puff IH Q12 #1 inhaler 12/10/18 Buspirone HCl [Buspar 10 mg Tablet] 5 mg PO BID #60 tablet 12/10/18 Diltiazem HCl [Cardizem Cd 180 mg Capsule] 180 mg PO Q12 #60 capsule.cr 12/10/18 Lisinopril [Prinivil 10 mg Tablet] 20 mg PO DAILY #30 tablet 12/10/18 Prednisone [Deltasone 20 mg Tablet] See Protocol PO ASDIR #10 tablet 12/10/18 Venlafaxine HCl ER [Effexor Xr 37.5 mg Cap.sr] 37.5 mg PO DAILY #30 cap.sr.24h 12/10/18 History of Present Illness History of Present Illness: TIFFANIE MACIEL is a 53 year old male with no significant past medical history was admitted for pneumonia started on antibiotics. Hospital Course Hospital Course: After admission to the hospital he was on cefepime and Zosyn and I had his continued Zosyn and continue on cefepime. He improved gradually but overnight he went to T and was transferred to the ICU. He did receive adenosine but did not help. Cardiology was consulted and put him on Cardizem and his rate was better controlled. His blood pressure continued to remain high and hence lisinopril was added and titrated up to 20 mg daily. Unfortunately he required oxygen continuously to keep his oxygen sat greater than 90%. He was qualified for O2 but unfortunately he does not have insurance and hence he would have to pay out of pocket for now. This was set up by discharge planners and he will have oxygen at home at 2 L. I saw him this morning and he was feeling fine. He has been off of the antibiotics. He is off of the Cardizem drip that was initially started. Currently he is on Cardizem and lisinopril. I will start him on Symbicort for his breathing because he is a smoker and most likely he has COPD. I discussed with him about following up with cardiology and pulmonology after discharge and he understands this. Family at bedside and I went over the plan of care at this time. During his stay in the hospital he also developed some anxiety and depression- psych was consulted and they recommended BuSpar and Effexor which was prescribed to him. He should follow-up with his PCP for continued care and refills. He will need follow-up with pulmonology and cardiology within 1-2 weeks. He will need an official diagnosis of hypertension as he does not have one right now. For his SVT or atrial flutter cardiology start him on aspirin and he will be continued on it. As per cardiology his Angel Luis Vascore is 0. He will follow-up outpatient. Today he has no complaint of chest pain, shortness of breath, abdominal pain, nausea/vomiting or dizziness. He is ready to go and awaiting discharge. Physical Exam Vital Signs: Temp Pulse Resp BP Pulse Ox 97.5 F 78 20 141/75 H 95 12/10/18 12:00 12/10/18 12:00 12/10/18 12:00 12/10/18 12:00 12/10/18 12:00 Intake & Output 12/09/18 12/10/18 12/11/18 06:59 06:59 06:59 Intake Total 100 290 168 Output Total 1100 725 500 Balance -1000 -435 -332 Weight 124 lb 5.451 oz General appearance: PRESENT: no acute distress Head exam: ABSENT: atraumatic, normocephalic Eye exam: PRESENT: EOMI. ABSENT: conjunctival injection, scleral icterus Ear exam: PRESENT: normal external ear exam Mouth exam: PRESENT: moist, tongue midline Neck exam: ABSENT: tracheal deviation Respiratory exam: PRESENT: decreased breath sounds - Bilaterally, symmetrical, wheezes - Occasional expiratory wheezing Cardiovascular exam: PRESENT: +S1, +S2 Pulses: PRESENT: +2 pedal pulses bilateral GI/Abdominal exam: PRESENT: normal bowel sounds, soft. ABSENT: tenderness Extremities exam: ABSENT: pedal edema Neurological exam: PRESENT: alert, awake, oriented to person, oriented to place, oriented to time, oriented to situation, CN II-XII grossly intact Skin exam: PRESENT: dry, warm Results Laboratory Results: 12/10/18 09:03 12/10/18 09:03 12/10/18 12/10/18 09:03 09:03 WBC 16.7 H RBC 4.42 Hgb 14.3 Hct 42.6 MCV 96 MCH 32.3 MCHC 33.6 RDW 13.0 Plt Count 359 Seg Neutrophils % 81.0 H Lymphocytes % 10.7 L Monocytes % 7.8 Eosinophils % 0.1 Basophils % 0.4 Absolute Neutrophils 13.5 H Absolute Lymphocytes 1.8 Absolute Monocytes 1.3 Absolute Eosinophils 0.0 Absolute Basophils 0.1 Sodium 139.4 Potassium 3.8 Chloride 103 Carbon Dioxide 34 H Anion Gap 2 L BUN 19 Creatinine 0.57 Est GFR ( Amer) > 60 Est GFR (Non-Af Amer) > 60 Glucose 104 Calcium 8.7 Magnesium 2.4 H 12/05/18 03:13 Blood Blood Culture - Final NO GROWTH IN 5 DAYS 12/05/18 00:56 Blood Blood Culture - Final NO GROWTH IN 5 DAYS 12/05/18 10:50 Sputum Gram Stain - Final 12/05/18 10:50 Sputum Sputum Culture - Final NORMAL OMAR 12/04/18 12/05/18 12/05/18 23:44 22:02 22:02 Creatine Kinase 68 CK-MB (CK-2) 2.04 Troponin I 0.019 < 0.012 12/06/18 12/06/18 12/06/18 06:10 06:10 15:20 Creatine Kinase 54 L 47 L CK-MB (CK-2) 2.71 Troponin I 0.058 12/06/18 15:20 Creatine Kinase CK-MB (CK-2) 2.81 Troponin I 0.028 Impressions: Chest/Abdomen CTA 12/04/18 23:26 IMPRESSION: Bibasilar pneumonia on background of emphysema. No aortic dissection or aneurysm. No pulmonary embolus. Chest X-Ray 12/07/18 11:26 IMPRESSION: NO ACUTE FINDINGS. Qualifiers - * PATIENT BEING DISCHARGED WITH ANY OF THE FOLLOWING DIAGNOSIS: No Plan Time Spent: Less than 30 Minutes
[2018-12-10] MEDS: IPRATROPIUM/ALBUTEROL 0.5-2.5 MG/3 ML AMPUL NEB PRN (13:32)
[2018-12-10 15:03] VITALS: BP 133/71
[2018-12-10] MEDS ORDERED: ATORVASTATIN CALCIUM 40 MG TABLET PO SCH (22:00)
== END 2018-12-10 15:46 | disposition home or self-care (01) | DRG 193 ==
LOC: ER 16:27 → EH 12-05 01:08 → OBSVTOIN 12-05 01:08 → 3N 12-05 02:00 → ICU 12-05 22:28
PROVIDERS: ADMIT Internal Medicine; ATTEND Internal Medicine
DX: J18.9 Pneumonia, unspecified organism (principal); J96.01 Acute respiratory failure with hypoxia; J44.1 Chronic obstructive pulmonary disease with (acute) exacerbation; I47.1 Supraventricular tachycardia; I48.0 Paroxysmal atrial fibrillation; I27.20 Pulmonary hypertension, unspecified; K21.9 Gastro-esophageal reflux disease without esophagitis; F41.9 Anxiety disorder, unspecified; F17.210 Nicotine dependence, cigarettes, uncomplicated
CPT/HCPCS: 36415; 36600; 71045; 71046; 71275; 80048; 80053; 80061; 80076; 80307; 81001; 82550; 82553; 82803; 83735; 84439; 84443; 84481; 84484; 85025; 87040; 87070; 87086; 87205; 87804; 93005; 93010; 93306; 94640; 94660; 94668; 96361; 96365; 96375; 99285; J0153; J0282; J0360; J0692; J1644; J1650; J1956; J2060; J2270; J2405; J2543; J2930; J3490; J7030; J7040; J7512; J7620

== ENCOUNTER 2019-05-28 22:39 | Emergency (ER) | payer OTHER ==
[2019-05-28 22:46] VITALS: BP 167/83
[2019-05-28] MEDS ORDERED: TETRACAINE HCL 0.5% OPH SOLN 4 ML ONE (23:25)
[2019-05-28] MEDS ORDERED: TETRACAINE HCL 0.5% OPH SOLN 4 ML OU ONE (23:26)
--- NOTE | 2019-05-28 23:28 | ER Document Report ---
ED General - General Chief Complaint: Eye Pain Stated Complaint: BLURRY VISION Time Seen by Provider: 05/28/19 23:11 Primary Care Provider: BARB ROMERO MD [ACTIVE STAFF] - Follow up tomorrow (CALL TOMORROW FOR CLOSE FOLLOW UP WITH EYE DOCTOR) TRAVEL OUTSIDE OF THE [place] IN LAST 30 DAYS: No - HPI Notes: 54-year-old male to the emergency department with complaints of bilateral eye pain that has gotten progressively worse this evening. 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 He states that he was wearing his appropriate protective eyewear but does report that at one point he took his helmet off and was videotaping his daughter welding. He states that approximately 6 hours later he began to feel burning eye pain in his right eye. He decided to take a nap but when he awoke from that he had pain in both of his eyes. States he tried to wash out his eyes and has been rubbing them quite a bit. States that he has had tearing of the eyes due to the pain and photophobia. Denies getting anything in his eyes. He has never had flash osman before. He has not taken any medicine prior to arrival. He does not wear contacts or glasses. He is up-to-date on his immunizations. - Related Data Allergies/Adverse Reactions: No Known Allergies Allergy (Verified 05/28/19 22:44) Past Medical History - General Information source: Patient, Relative - Social History Smoking Status: Never Smoker Frequency of alcohol use: None Drug Abuse: None Lives with: Spouse/Significant other Family History: Reviewed & Not Pertinent Pulmonary Medical History: Reports: Hx Bronchitis Renal/ Medical History: Denies: Hx Peritoneal Dialysis GI Medical History: Reports: Hx Gastroesophageal Reflux Disease Review of Systems - Review of Systems Constitutional: denies: Chills, Fever EENT: Eye pain, Tearing, Ear discharge. denies: Double vision, Ear pain, Mouth pain Cardiovascular: denies: Chest pain, Syncope, Dizziness, Lightheaded Respiratory: denies: Cough, Short of breath Gastrointestinal: Nausea. denies: Abdominal pain, Diarrhea, Vomiting Musculoskeletal: denies: No symptoms reported Skin: denies: No symptoms reported Neurological/Psychological: Headaches -: Yes All other systems reviewed and negative Physical Exam - Vital signs Vitals: Temp Pulse Resp BP Pulse Ox 97.8 F 72 18 167/83 H 97 05/28/19 22:45 05/28/19 22:45 05/28/19 22:45 05/28/19 22:45 05/28/19 22:45 Interpretation: Hypertensive - General General appearance: Anxious In distress: Moderate Notes: In moderate pain distress. Covering his eyes and rubbing them. He is obviously in discomfort. - HEENT Head: Normocephalic Eyes: Tears, Other - + photophobia. No: Periorbital ecchymosis, Periorbital edema Conjunctiva: Injected Cornea: Corneal abrasion - With fluot stain strips and Wood's lamp exam, there is noted corneal abrasion to the 9 o'clock position of the left eye. Surrounding there are punctate superficial lesions to the left and right cornea -- this is most consistent with a UV keratitis., Flourescein stain uptake, Other - patient gets signficant relief with tetracaine drops. No: Embedded foreign body, Superficial foreign body Extraocular movements intact: Yes Pupils: PERRL Visual acuity- Right eye: 20/25 Visual acuity- Left eye: 20/40 Visual acuity- Both eyes: 20/20 Corrective lenses worn: No Right intraocular pressure: 18 Left intraocular pressure: 17 Lids everted for exam: bilateral: Normal Anterior chamber: Normal Fundascopic: Normal Nerve palsy: No Visual santoro normal: Yes Ears: Normal External canal: Normal Tympanic membrane: Normal Sinus: Normal Nasal: Normal Mouth/Lips: Normal Pharynx: Normal - Respiratory Respiratory status: No respiratory distress Chest status: Nontender Breath sounds: Normal Chest palpation: Normal - Cardiovascular Rhythm: Regular Heart sounds: Normal auscultation Murmur: No - Neurological Neuro grossly intact: Yes Cognition: Normal Orientation: AAOx4 [place] Coma Scale Eye Opening: Spontaneous [place] Coma Scale Verbal: Oriented [place] Coma Scale Motor: Obeys Commands [place] Coma Scale Total: 15 Speech: Normal Motor strength normal: LUE, RUE, LLE, RLE Sensory: Normal - Psychological Associated symptoms: Normal affect, Normal mood - Skin Skin Temperature: Warm Skin Moisture: Dry Skin Color: Normal Course - Re-evaluation Re-evalutation: 05/29/19 patient is doing better after tetracaine drops. Applied once more for pain relief and will give Percocet. His exam is most consistent with UV keratitis with an overlying corneal abrasion to the left cornea. Suspect that the left corneal abrasion is due from patient rubbing the eye and trying to wash it out. His history is most consistent with keratitis from welding and not using protective eyewear. We will have him follow with senior [employer] network engineer tomorrow without fail. Will write for erythromycin ointment, cycloplegic drop, and P ercocet. Did eye pressures are within normal limitsno suspicion for an acute glaucoma picture. Patient agrees with the plan. Return if his symptoms worsen, worsening eyesight, fevers, chills or any other concerns. - Vital Signs Vital signs: Temp Pulse Resp BP Pulse Ox 97.8 F 72 18 167/83 H 97 05/28/19 22:45 05/28/19 22:45 05/28/19 22:45 05/28/19 22:45 05/28/19 22:45 Discharge - Discharge Clinical Impression: Pain of both eyes UV keratitis Qualifiers: Laterality: right Qualified Code(s): H16.131 - Photokeratitis, right eye Corneal abrasion Qualifiers: Encounter type: initial encounter Laterality: right Qualified Code(s): S05.01XA - Injury of conjunctiva and corneal abrasion without foreign body, right eye, initial encounter Condition: Stable Disposition: HOME, SELF-CARE Instructions: Corneal Ultraviolet Burn ([facility]) Additional Instructions: Corneal Abrasion You have a corneal abrasion, a scratch on the surface of the eye. The pain of a corneal abrasion feels like a sharp particle in the eye. Usually, antibiotics are placed in the eye to prevent infection. Occasionally, medication will be placed in the eye to dilate the pupil. This is done to relieve some of your discomfort and is only temporary. Pain medication may be required. Don't drive or operate machinery until you have the use of both your eyes. The abrasion usually is healed in one or two days. A follow-up examination to confirm healing is recommended. You also have UV Keratitis from exposure to welding. Call the eye doctor tomorrow for further management. Take medicines as prescribed. Return if worse. USe antibiotic salve and eye drops. Use pain medicine for breakthrough pain. Call the doctor or return at once if you develop severe pain, decreasing vision, eye swelling, or purulent drainage. Prescriptions: Cyclopentolate HCl [Cyclogyl 1% Oph Soln 2 ml] 1 - 2 drop OU Q8H #1 bottle Erythromycin Base [Erythromycin Oph 1 Gm Oint Ud] 1 applic TOP TID #3.5 g Oxycodone HCl/Acetaminophen [Percocet 5-325 mg Tablet] 1 tab PO ASDIR PRN #15 tab PRN Reason: Referrals: BARB ROMERO MD [ACTIVE STAFF] - Follow up tomorrow (CALL TOMORROW FOR CLOSE FOLLOW UP WITH EYE DOCTOR)
[2019-05-29] MEDS ORDERED: OXYCODONE-ACETAMINOPHEN 5-325 MG TABLET PO ONE (00:15)
== END 2019-05-28 23:55 | disposition home or self-care (01) ==
LOC: ER 22:39
DX: S05.02XA Injury of conjunctiva and corneal abrasion without foreign body, left eye, initial encounter (principal); S05.01XA Injury of conjunctiva and corneal abrasion without foreign body, right eye, initial encounter; H16.131 Photokeratitis, right eye; H53.142 Visual discomfort, left eye; H57.13 Ocular pain, bilateral; X58.XXXA Exposure to other specified factors, initial encounter
CPT/HCPCS: 99283